=== PATIENT | female | born 1975 | race Caucasian/White ===

== ENCOUNTER 2024-02-17 20:01 | Inpatient (IN) ==
[2024-02-17 20:31] LABS: Basophils # (auto) 0.07 K/uL (0.00-0.20); Eosinophils # (auto) 0.15 K/uL (0.00-0.50); Eosinophils % (auto) 2.2 %; Hematocrit (blood only) 38.7 % (37.0-47.0); Hemoglobin 13.5 g/dl (12.0-16.0); Immature Granulocytes # (auto) 0.02 K/uL (0.01-0.20); Immature Granulocytes % (auto) 0.3 %; Lymphocytes # (auto) 2.15 K/uL (1.20-3.40); Lymphocytes % (auto) 31.4 %; Mean Corpuscular Hgb Conc 34.9 g/dL (32.0-36.0); Mean Platelet Volume 9.9 fL (9.4-12.4); Monocytes # (auto) 0.44 K/uL (0.11-0.59); Monocytes % (auto) 6.4 %; Neutrophils # (auto) 4.01 K/uL (1.40-6.50); Neutrophils % (auto) 58.7 %; Platelet Count 262 K/uL (130-400); RDW Coefficient of Variation 13.1 % (11.5-14.5); RDW Standard Deviation 41.2 fL (36.4-46.3); White Blood Count 6.84 K/ul (4.8-10.8)
[2024-02-17 20:55] LABS: Albumin Globulin Ratio 1.5 (0.9-2); Albumin Level 4.6 gm/dl (3.4-5.0); BUN Creatinine Ratio 18.6 (10-20); Bilirubin,Total 0.3 mg/dl (0.2-1.0); Calcium 9.3 mg/dl (8.6-10.3); Creatinine Clr Calc Pharmacy 69.5 ml/min; Magnesium 2.1 mg/dl (1.7-2.4); Potassium 3.6 mmol/L (3.5-5.1); Pregnancy Test, Serum Negative (Negative); Total Protein 7.6 gm/dl (6.0-8.3)
[2024-02-17 21:09] LABS: Thyroid Stimulating Hormone 0.975 uIu/ml (0.300-4.500)
[2024-02-17 21:26] LABS: Acetaminophen < 3 ug/ml (10-30); Salicylate < 3.0 mg/dl (3.0-30)
--- NOTE | 2024-02-17 21:55 | Emergency Department Note ---
Impression & Plan Alcohol use disorder, Alcohol withdrawal ED Provider Note CHIEF COMPLAINT: Detox request HISTORY OF PRESENTING ILLNESS: This 48-year-old female patient presents to the emergency department via EMS for evaluation of a detox request. The patient states that she had been trying to get into detox at [facility], but her blood alcohol level was .301 and an ambulance was called due to her history of seizures while detoxing. The patient states that she did drink 1/5 of Vodka today. She states that she normally drinks 1/5 of Vodka a day. The patient states that she has a history of seizures while detoxing. She last drink 3 hours prior to arrival. She states that she feels shaky and her heart is racing like she typically gets with detoxing. She has been to rehab 4 times previously per patient. She states that her last rehab stay was about 20 days ago. She is from [place] and had an Uber take her to [facility] for detox. She denies any drug use. She denies any symptoms other than her withdrawal symptoms. REVIEW OF SYSTEMS: See HPI for pertinent positives and pertinent negatives. ALLERGIES: PCN - hives MEDICATIONS: Modafinil, Lexapro, Trazodone PAST MEDICAL HISTORY: Relapsing remitting MS, Anxiety, Alcohol use disorder PHYSICAL EXAM: VITALS: Vitals are noted on the nurse's note and reviewed by myself. GENERAL: The patient is visibly intoxicated, but non toxic, no acute distress, non-diaphoretic. SKIN: Capillary refill <2 sec. EYES: PERRLA. EOMI. Conjunctivae without injection, sclerae without icterus. NOSE: Patent without discharge. MOUTH: Mucous membranes moist. Uvula midline. Airway patent. NECK: Supple without nuchal rigidity. HEART: Regular rate and rhythm without murmurs gallops or rubs. LUNGS: Clear to auscultation bilaterally without wheezes, rales or rhonchi. No retractions or accessory muscle use. ABDOMEN: Positive bowel sounds x 4. Normal tympanic percussion. Soft, nontender. No masses or organomegaly. Dennis sign negative. No guarding or rebound tenderness. No focal RLQ or LLQ tenderness. NEURO: The patient is visibly intoxicated. Patient was alert and oriented, but the patient has repetitive questioning and repetitive speech due to her alcohol intoxication. DIFFERENTIAL DIAGNOSIS: Differential diagnosis includes alcohol intoxication, drug intoxication, toxicologic, infection, hypoglycemia, electrolyte abnormalities, cardiac sources, intracerebral event, neurologic, trauma, psychosis, as well as other pathologies. ED COURSE AND MEDICAL DECISION MAKING: MEDICATIONS GIVEN: Ativan 1 mg IV. Banana bag. MONITOR: Continuous lpn care manager: Order was placed for continuous lpn care manager. Patient was placed on the lpn care manager and continuous pulse ox. Patient was noted to be in normal sinus rhythm at an initial rate of 90 bpm per my interpretation. EKG: EKG was interpreted by myself as normal sinus rhythm at 87 bpm with no acute ST or T wave changes. INTERPRETATION OF LABS: I interpreted the labs with full lab results as below in the lab section of this note. Pertinent lab results discussed in the MDM section below. CONSULTATIONS: On-call hospitalist MDM SUMMARY: I examined the patient. The patient is apparently from [place] and took an Uber to [facility] rehab facility due to her alcohol use disorder. However, when the patient arrived, her alcohol level was apparently 0.301. She has a history of seizures from withdrawal and she was sent to the emergency department via ambulance. The patient states that she has been to rehab for previous times and typically drinks 1/5 of vodka a day. She admits to drinking 1/5 of vodka today prior to attempting to go to rehab. The patient states that she is starting to experience mild withdrawal symptoms at this time, but denies any other symptoms or concerns. An IV lock was placed and labs were drawn. The patient was given Ativan 1 mg IV and a banana bag. White blood cell count was normal at 6.84. Hemoglobin normal at 13.5. Platelet count normal at 262. Glucose 110, but CMP otherwise without significant abnormalities. Magnesium normal. TSH normal. Serum hCG negative. Salicylate and acetaminophen levels were negative. Medical alcohol level elevated at 382.6. COVID screen negative. The patient did not give a urine sample while in the emergency department. The patient is requesting rehab placement/detox for her alcohol use disorder. The patient states that she has a history of seizures with withdrawal. The patient will be admitted for medical management until she is stable to be discharged to a rehab facility. I spoke with the on-call hospitalist who agreed to admit the patient for further management. Please refer to their dictation for further details. The patient's care was transferred in stable condition. DIAGNOSIS: Alcohol use disorder Alcohol withdrawal Past Med/Surg History Problem List (Updated 02/19/24 @ 19:40 by Yoselin Luong PA-C) Alcohol use disorder (Acute) Alcohol withdrawal (Acute) Social History Smoking Status: Never smoker Hx Alcohol Use: Yes Alcohol type: hard liquor Hx Substance Use: No Preferred Language: Faroese Communication Ability: Effective Rf Microwave Engineer Required: No Beliefs That Will Affect Care: None Current Living Situation: Alone Feels Safe at Home: Yes Safety Concerns: Feels Safe At This Time Assistive Devices: None Allergies Allergies Allergy/AdvReac Type Severity Reaction Status Date / Time Penicillins Allergy Hives Verified 02/17/24 22:06 Home Meds Home Medications Medication Instructions Recorded Confirmed escitalopram oxalate 10 mg tablet 10 mg PO HS 02/17/24 02/17/24 modafinil 100 mg tablet 100 mg PO QAM 02/17/24 02/17/24 trazodone 50 mg tablet 25 mg PO HS 02/17/24 02/17/24 Results & Data (ED) Vital Signs Vital Signs - 24 hr 02/17/24 20:09 02/17/24 20:13 02/17/24 20:19 Temperature 36.7 C Temperature Source Oral Pulse Rate 90 88 Pulse Rate [Radial] Pulse Rhythm [Radial] Pulse Strength [Radial] Respiratory Rate 16 Respiratory Effort / Characteristics Respiratory Depth Respiratory Pattern Blood Pressure 127/73 Blood Pressure [Left Arm] Blood Pressure Mean 91 Blood Pressure Mean [Left Arm] Blood Pressure Position [Left Arm] Pulse Oximetry 95 96 Oxygen Delivery Method Room Air Room Air Sepsis Recent Fever Within 48 Hours No Sepsis New/Unexplained Change in Mental Status N/A Sepsis Action Taken by Nursing No Action Required 02/17/24 22:32 02/17/24 23:33 Temperature Temperature Source Pulse Rate Pulse Rate [Radial] 78 79 Pulse Rhythm [Radial] Regular Pulse Strength [Radial] Normal Respiratory Rate 18 19 Respiratory Effort / Characteristics Non-Labored Spontaneous Respiratory Depth Normal Respiratory Pattern Regular Blood Pressure Blood Pressure [Left Arm] 118/78 112/68 Blood Pressure Mean Blood Pressure Mean [Left Arm] 91 82 Blood Pressure Position [Left Arm] Lying Pulse Oximetry 97 97 Oxygen Delivery Method Room Air Sepsis Recent Fever Within 48 Hours Sepsis New/Unexplained Change in Mental Status Sepsis Action Taken by Nursing Laboratory Data 02/19/24 05:24 10/22/24 05:24 Lab Results 02/17/24 02/17/24 Range/Units 20:13 20:17 WBC 6.84 (4.8-10.8) K/ul RBC 4.50 (4.20-5.40) M/uL Hgb 13.5 (12.0-16.0) g/dl Hct 38.7 (37.0-47.0) % MCV 86.0 (80.0-100.0) fL MCH 30.0 (25.0-34.0) pg MCHC 34.9 (32.0-36.0) g/dL RDW Std Deviation 41.2 (36.4-46.3) fL RDW Coeff of Irvin 13.1 (11.5-14.5) % Plt Count 262 (130-400) K/uL MPV 9.9 (9.4-12.4) fL Immature Gran % (Auto) 0.3 % Neut % (Auto) 58.7 % Lymph % (Auto) 31.4 % [place] % (Auto) 6.4 % Eos % (Auto) 2.2 % Baso % (Auto) 1.0 % Neut # (Auto) 4.01 (1.40-6.50) K/uL Lymph # (Auto) 2.15 (1.20-3.40) K/uL [place] # (Auto) 0.44 (0.11-0.59) K/uL Eos # (Auto) 0.15 (0.00-0.50) K/uL Baso # (Auto) 0.07 (0.00-0.20) K/uL Immature Gran # (Auto) 0.02 (0.01-0.20) K/uL Sodium 143 (136-145) mmol/L Potassium 3.6 (3.5-5.1) mmol/L Chloride 103 (98-107) mmol/L Carbon Dioxide 33 H (21-32) mmol/L Anion Gap 7 (3-11) BUN 16 (6-23) mg/dl Creatinine 0.86 (0.6-1.2) mg/dl Est Cr Clr Drug Dosing 69.5 ml/min eGFR 82.76 BUN/Creatinine Ratio 18.6 (10-20) Glucose 110 H (70-99(Fasting)) mg/dl Estimat Average Glucose 105 mg/dl Hemoglobin A1c 5.3 (4.5-5.6) % Calcium 9.3 (8.6-10.3) mg/dl Magnesium 2.1 (1.7-2.4) mg/dl Total Bilirubin 0.3 (0.2-1.0) mg/dl AST 18 (13-39) U/L ALT 6 L (7-52) U/L Alkaline Phosphatase 77 (34-104) U/L Total Protein 7.6 (6.0-8.3) gm/dl Albumin 4.6 (3.4-5.0) gm/dl Globulin 3.0 (2.5-4.0) gm/dl Albumin/Globulin Ratio 1.5 (0.9-2) TSH 0.975 (0.300-4.500) uIu/ml HCG, Qual Negative (Negative) Salicylates < 3.0 L (3.0-30) mg/dl Acetaminophen < 3 L (10-30) ug/ml Ethyl Alcohol mg/dL 382.6 H (<10.0) mg/dl SARS-CoV-2, RNA, NAAT NEGATIVE (NEGATIVE) Administered Medications Chlordiazepoxide HCl (Chlordiazepoxide Hcl 25 Mg Cap) 50 mg PO Q8H MARCELLE Stop: 02/20/24 06:01 Last Admin: 02/19/24 13:18 Dose: 50 mg Documented By: ELIUD Escitalopram Oxalate (Escitalopram Oxalate 10 Mg Tab) 10 mg PO HS MARCELLE Stop: 03/19/24 20:59 Last Admin: 02/18/24 20:12 Dose: 10 mg Documented By: MAO Lorazepam (Lorazepam 2 Mg/1 Ml Vial) 1 mg IV UD PRN; Protocol PRN Reason: EtOH Withdrawal AWSS Score 6,7 Stop: 03/19/24 00:08 Last Admin: 02/19/24 01:36 Dose: 1 mg Documented By: Admin: 02/18/24 06:44 Dose: 1 mg Documented By: ALICIA Lorazepam (Lorazepam 2 Mg/1 Ml Vial) 2 mg IV UD PRN; Protocol PRN Reason: EtOH Withdrawal AWSS Score 8,9 Stop: 03/19/24 00:08 Last Admin: 02/19/24 18:47 Dose: 2 mg Documented By: Admin: 02/19/24 15:39 Dose: 2 mg Documented By: Admin: 02/19/24 12:55 Dose: 2 mg Documented By: Admin: 02/19/24 08:13 Dose: 2 mg Documented By: Admin: 02/18/24 20:07 Dose: 2 mg Documented By: Admin: 02/18/24 11:59 Dose: 2 mg Documented By: MALKA Lorazepam (Lorazepam 2 Mg/1 Ml Vial) 0.5 mg IV Q4H PRN PRN Reason: Anxiety/Agitation Stop: 03/19/24 07:50 Last Admin: 02/19/24 17:17 Dose: 0.5 mg Documented By: Admin: 02/18/24 17:27 Dose: 0.5 mg Documented By: MALKA Melatonin (Melatonin 3 Mg Tab) 9 mg PO HS PRN PRN Reason: Sleep Stop: 03/19/24 21:54 Last Admin: 02/18/24 22:24 Dose: 9 mg Documented By: MAO Modafinil (Modafinil 100 Mg Tab) 100 mg PO [facility] Stop: 03/19/24 08:59 Last Admin: 02/19/24 08:13 Dose: 100 mg Documented By: Admin: 02/18/24 09:46 Dose: 100 mg Documented By: MALKA Trazodone HCl (Trazodone Hcl 50 Mg Tab) 25 mg PO HS [facility] Stop: 03/19/24 20:59 Last Admin: 02/18/24 22:24 Dose: 25 mg Documented By: MAO Discontinued Medications Chlordiazepoxide HCl (Chlordiazepoxide Hcl 25 Mg Cap) 50 mg PO Q6@0600,0800,1400,2000 [facility] Stop: 02/19/24 06:01 Last Admin: 02/19/24 05:37 Dose: 50 mg Documented By: Admin: 02/18/24 20:12 Dose: 50 mg Documented By: Admin: 02/18/24 14:24 Dose: 50 mg Documented By: Admin: 02/18/24 08:39 Dose: 50 mg Documented By: MALKA Escitalopram Oxalate (Escitalopram Oxalate 10 Mg Tab) 10 mg PO ONE STA Stop: 02/18/24 00:05 Last Admin: 02/18/24 00:37 Dose: 10 mg Documented By: ARMEN Gabapentin (Gabapentin 600 Mg Tab) 1,200 mg PO NOW STA Stop: 02/18/24 00:12 Last Admin: 02/18/24 00:38 Dose: 1,200 mg Documented By: ARMEN Gabapentin (Gabapentin 600 Mg Tab) 600 mg PO Q6H MARCELLE Stop: 02/18/24 12:16 Last Admin: 02/18/24 06:36 Dose: 600 mg Documented By: ALICIA Multivitamins 10 ml/ Thiamine HCl 100 mg/ Folic Acid 1 mg/Sodium Chloride 1,011.2 mls @ 500 mls/hr IV .Q2H2M ONE Stop: 02/18/24 00:07 Last Infusion: 02/18/24 01:07 Dose: Infused Documented By: Admin: 02/17/24 23:03 Dose: 500 mls/hr Documented By: ZACHARY Thiamine HCl 100 mg/ Syringe 10 mls @ 2 mls/min IV QA MARCELLE Stop: 03/19/24 08:59 Last Admin: 02/19/24 08:09 Dose: 2 mls/min Documented By: Admin: 02/18/24 09:46 Dose: 2 mls/min Documented By: MALKA Folic Acid 1 mg/ Syringe 10 mls @ 5 mls/min [facility] [place] Stop: 03/19/24 08:59 Last Admin: 02/19/24 08:10 Dose: 5 mls/min Documented By: Admin: 02/18/24 09:46 Dose: 5 mls/min Documented By: MALKA Potassium Chloride/Sodium Chloride (Normal Saline W/20 Meq Kcl) 20 meq in 1,000 mls @ 80 mls/hr IV .[id number] MARCELLE Stop: 02/18/24 20:44 Last Admin: 02/18/24 14:13 Dose: Not Given Documented By: MALKA Lorazepam (Lorazepam 2 Mg/1 Ml Vial) 1 mg IV NOW STA Stop: 02/17/24 22:07 Last Admin: 02/17/24 22:16 Dose: 1 mg Documented By: ZACK Potassium Chloride (Potassium Chloride Crtab 20 Meq Tabcr) 40 meq PO NOW STA Stop: 02/19/24 07:37 Last Admin: 02/19/24 08:08 Dose: 40 meq Documented By: ELIUD Trazodone HCl (Trazodone Hcl 50 Mg Tab) 25 mg PO ONE STA Stop: 02/18/24 00:05 Last Admin: 02/18/24 00:37 Dose: 25 mg Documented By: STEFANIEW Discharge Plan Visit Data Chief Complaint: Detox Request Stated Complaint: DETOX REQUEST ED Provider: Kareem Lang ED Midlevel Provider: Yoselin Luong Discharge Problem: Alcohol use disorder, Alcohol withdrawal Patient Disposition: Admitted As Inpatient Condition: Good Discharge Instructions Interventions: ED Discharge Assessment Last Done: 02/18/24 08:00 Discharge Problem: Alcohol withdrawal Qualifiers: Complication of substance-induced condition: with unspecified complication Q ualified Code(s): F10.939 - Alcohol use, unspecified with withdrawal, unspecified
[2024-02-17] MEDS: LORazepam 2 MG/1 ML VIAL IV STA (22:16)
[2024-02-17] MEDS: MULTI-VITAMIN INFUSION 10 ML, THIAMINE HCL 100 MG, FOLIC ACID 1 MG in SODIUM CHLORIDE 0... IV ONE (23:03)
--- NOTE | 2024-02-17 23:49 | History & Physical Report ---
Date of Service February 17, 2024 Assessment & Plan (1) Alcohol withdrawal: Plan: History of alcohol withdrawal seizures multiple sclerosis, in remission, patient follows with [facility] neurologist anxiety disorder, at baseline Hyperglycemia ro DM Admit to medical telemetry APOORVA S, DT precautions Check hemoglobin A1c DVT prophylaxis. SCDs Full code Text document was generated using [employer] voice recognition software. It may contain grammatical or spelling errors. Kindly contact undersigned for clarification of any documentation item in question. History of Present Illness Chief Complaint: [facility] sent me here Primary Care Provider: LISBETH Looney History obtained from patient and records. Medical history significant for multiple sclerosis, anxiety disorder, alcohol abuse, history alcohol withdrawal seizures. Patient is a resident of [facility] who traveled to [facility] seeking voluntary admission at [facility] for detox. Last confinement [facility] September 2023 for alcohol withdrawal seizures. Recent [facility] ER visit 4 days ago for ground-level fall/head trauma at [place] detox facility. Patient discharged back to detox facility. Patient had Uber emergency vehicle driver take her to [facility] today seeking con finement for voluntary detox. Patient noted tremors en route to facility. Elevated alcohol level at facility. Patient directed to ER for admission given history of alcohol withdrawal seizures. Patient denies headache, chest pain, SOB, abdominal pain. Patient denies suicidality. 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 Allergies Allergy/AdvReac Type Severity Reaction Status Date / Time Penicillins Allergy Hives Verified 02/17/24 22:06 Home Medications Medication Instructions Recorded Confirmed Type escitalopram oxalate 10 mg tablet 10 mg PO HS 02/17/24 02/17/24 History modafinil 100 mg tablet 100 mg PO QAM 02/17/24 02/17/24 History trazodone 50 mg tablet 25 mg PO HS 02/17/24 02/17/24 History Past Med/Surg History Problem List (Updated 02/18/24 @ 03:42 by Mando Grayson MD) Alcohol withdrawal Social History Smoking Status: Never smoker Hx Alcohol Use: Yes Alcohol type: hard liquor Hx Substance Use: No Preferred Language: Spanish Communication Ability: Effective Frame Assembler Required: No Beliefs That Will Affect Care: None Current Living Situation: Alone Feels Safe at Home: Yes Safety Concerns: Feels Safe At This Time Assistive Devices: None Review of Systems Review of Systems: As per HPI, all other systems reviewed and negative Physical Exam Physical Exam: GENERAL: pleasant, somewhat restless, alcoholic fetor, no respiratory distress SKIN: Normal color, warm HEENT: Kyle palpebral conjunctivae, no ptosis, dry buccal mucosa NECK : Supple, no tenderness CHEST : CTA, no tenderness HEART : RRR, no obvious murmurs ABDOMEN: no distention, nontender EXTREMITIES : No LE swelling/tenderness, no other conspicuous deformities noted NEUROLOGIC : Coherent, no facial asymmetry, no other gross focality Results & Data Results & Data Vital Signs (Past 12 Hours) Vital Signs Temp Pulse Pulse Resp BP BP Pulse Ox 02/17/24 23:33 79 19 112/68 97 02/17/24 22:32 78 18 118/78 97 02/17/24 20:19 88 02/17/24 20:13 96 02/17/24 20:09 36.7 C 90 16 127/73 95 O2 Del Method 02/17/24 23:33 Room Air 02/17/24 22:32 02/17/24 20:19 02/17/24 20:13 Room Air 02/17/24 20:09 Room Air Laboratory Results Laboratory Results WBC 6.84 K/ul (4.8-10.8) 02/17/24 20:13 RBC 4.50 M/uL (4.20-5.40) 02/17/24 20:13 Hgb 13.5 g/dl (12.0-16.0) 02/17/24 20:13 Hct 38.7 % (37.0-47.0) 02/17/24 20:13 MCV 86.0 fL (80.0-100.0) 02/17/24 20:13 MCH 30.0 pg (25.0-34.0) 02/17/24 20:13 MCHC 34.9 g/dL (32.0-36.0) 02/17/24 20:13 RDW Std Deviation 41.2 fL (36.4-46.3) 02/17/24 20:13 RDW Coeff of Irvin 13.1 % (11.5-14.5) 02/17/24 20:13 Plt Count 262 K/uL (130-400) 02/17/24 20:13 MPV 9.9 fL (9.4-12.4) 02/17/24 20:13 Immature Gran % (Auto) 0.3 % 02/17/24 20:13 Neut % (Auto) 58.7 % 02/17/24 20:13 Lymph % (Auto) 31.4 % 02/17/24 20:13 [place] % (Auto) 6.4 % 02/17/24 20:13 Eos % (Auto) 2.2 % 02/17/24 20:13 Baso % (Auto) 1.0 % 02/17/24 20:13 Neut # (Auto) 4.01 K/uL (1.40-6.50) 02/17/24 20:13 Lymph # (Auto) 2.15 K/uL (1.20-3.40) 02/17/24 20:13 [place] # (Auto) 0.44 K/uL (0.11-0.59) 02/17/24 20:13 Eos # (Auto) 0.15 K/uL (0.00-0.50) 02/17/24 20:13 Baso # (Auto) 0.07 K/uL (0.00-0.20) 02/17/24 20:13 Immature Gran # (Auto) 0.02 K/uL (0.01-0.20) 02/17/24 20:13 Sodium 143 mmol/L (136-145) 02/17/24 20:13 Potassium 3.6 mmol/L (3.5-5.1) 02/17/24 20:13 Chloride 103 mmol/L (98-107) 02/17/24 20:13 Carbon Dioxide 33 mmol/L (21-32) H 02/17/24 20:13 Anion Gap 7 (3-11) 02/17/24 20:13 BUN 16 mg/dl (6-23) 02/17/24 20:13 Creatinine 0.86 mg/dl (0.6-1.2) 02/17/24 20:13 Est Cr Clr Drug Dosing 69.5 ml/min 02/17/24 20:13 eGFR 82.76 02/17/24 20:13 BUN/Creatinine Ratio 18.6 (10-20) 02/17/24 20:13 Glucose 110 mg/dl (70-99(Fasting)) H 02/17/24 20:13 Calcium 9.3 mg/dl (8.6-10.3) 02/17/24 20:13 Magnesium 2.1 mg/dl (1.7-2.4) 02/17/24 20:13 Total Bilirubin 0.3 mg/dl (0.2-1.0) 02/17/24 20:13 AST 18 U/L (13-39) 02/17/24 20:13 ALT 6 U/L (7-52) L 02/17/24 20:13 Alkaline Phosphatase 77 U/L (34-104) 02/17/24 20:13 Total Protein 7.6 gm/dl (6.0-8.3) 02/17/24 20:13 Albumin 4.6 gm/dl (3.4-5.0) 02/17/24 20:13 Globulin 3.0 gm/dl (2.5-4.0) 02/17/24 20:13 Albumin/Globulin Ratio 1.5 (0.9-2) 02/17/24 20:13 TSH 0.975 uIu/ml (0.300-4.500) 02/17/24 20:13 HCG, Qual Negative (Negative) 02/17/24 20:13 Salicylates < 3.0 mg/dl (3.0-30) L 02/17/24 20:13 Acetaminophen < 3 ug/ml (10-30) L 02/17/24 20:13 Ethyl Alcohol mg/dL 382.6 mg/dl (<10.0) H 02/17/24 20:13 SARS-CoV-2, RNA, NAAT NEGATIVE (NEGATIVE) 02/17/24 20:17 Diagnostic Findings EKG as per my interpretation : Rate 85, NSR, RAD, nonspecific T wave abnormalities
[2024-02-18] MEDS ORDERED: LORazepam 2 MG/1 ML VIAL IV PRN ×2 (00:09→03:42)
[2024-02-18] MEDS ORDERED: Ativan IV Alcohol Withdrawal--Active Protocol IV PRN (00:09)
[2024-02-18] MEDS ORDERED: GABAPENTIN 1200MG ALCOHOL WITHDRAWAL LOAD PO STA (00:09)
[2024-02-18] MEDS ORDERED: PROMETHAZINE 6.25 MG/50.25 ML BAG IV PRN (00:10)
[2024-02-18] MEDS ORDERED: oxyCODONE HCL IR 5 MG TAB (IMMEDIATE RELEASE) PO PRN (00:10)
[2024-02-18] MEDS: traZODone HCL 50 MG TAB PO STA (00:37)
[2024-02-18] MEDS: ESCITALOPRAM OXALATE 10 MG TAB PO STA (00:37)
[2024-02-18] MEDS: GABAPENTIN 600 MG TAB PO STA (00:38)
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
--- OUTSIDE RECORDS SUMMARY | 2024-02-18 01:12 | External Medical Summary | Summary of Care ---
Author Name Unknown Organization [facility] Address [address] [place] [address] Phone [phone] Care Team Providers Care Ancient Art Curator Name Role Phone Cayey, Sirenasuzanna BOB Primary Care Provider Reason for Visit * Reason Onset Date Comments Referral 11/13/2023 Epic 178 Encounter Details Date Type Department Care Team ([facility] st Contact Info) Description 11/13/2023 Telephone BEHAVIORAL HEALTH BOXER OPERATOR [address] [place] [address] [facility] Referral (Epic 178) Allergies Active Allergy Reactions Criticality Noted Date [...] No 08/18/2023 Does the household have a [facility] source of income? (Household - for ages [...] encounter Miscellaneous Notes * Telephone Encounter - Susan Lewis OSA - 11/13/2023 11:27 AM EDT Referring provider: Sirena Buck CRNP Reason for referral: dx: alcohol abuse. Member with relapse and multiple Ed visits. States she wants to go to IP but continues to leave ED AMA before services can be coordinated. Member has an appt with PCP on 11/19/23 to discuss. Outcome: Sent provider a non-eligible message. Attempted to contact member. Call was not answered. LVM asking for a return call. If call is not returned will follow up on 11/16/23. Member can be directed to [employer] at [phone] Sunday through Sunday from 8am-5pm. documented in this encounter Plan of Treatment Upcoming Encounters Date Type Department Care Team (Late st Contact Info) Description 11/19/2023 10:00 AM EDT Office Visit [address] [address] Sirena Vick CRNP [address] [place] [address] 11/19/2023 12:00 PM EDT Appointment Radiology [facility], [facility] [address] [place] [address] [place] [address] 12/07/2023 8:00 AM EDT Office Visit [address] [address] Sirena Vick CRNP [address] [place] [address] Health Maintenance Due Date Last Done Comments [...] 05/27/2019, 08/06/2018, 08/06/2018 COVID-19 Vaccine (4 - 2022-2 4 season) 2022 03/25/2021, 08/19/2020, [...] Advance Directives occurred with: Patient Care Teams Ancient Art Curator Relationship Specialty Start Date End Date Sirena Vick CRNP [address] [place] [address] PCP - General Nurse Practitioner 11/10/23 documented as of this encounter
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
--- OUTSIDE RECORDS SUMMARY | 2024-02-18 01:12 | External Medical Summary ---
Author Name Unknown Address Unknown Organization [facility] [address] David [place] [address] Laboratory Report Ordering Provider Test Date Status BIANCA Jennings 02/13/2024 14:50:51 Final Observation Date Value Abnormality Reference (Units ) Status WBC, Total 02/13/2024 14:50:51 5.81 4.00-10.80 (K/uL) Final RBC 02/13/2024 14:50:51 4.51 3.85-5.15 (M/uL) Final Hemoglobin 02/13/2024 14:50:51 13.3 12.0-15.3 (g/dL) Final HCT 02/13/2024 14:50:51 40.0 36.0-45.2 (%) Final MCV 02/13/2024 14:50:51 88.7 81.5-97.5 (fL) Final MCH 02/13/2024 14:50:51 29.5 27.0-34.0 (pg) Final MCHC 02/13/2024 14:50:51 33.3 32.0-36.0 (g/dL) Final RDW 02/13/2024 14:50:51 12.7 11.5-15.5 (%) Final Platelets 02/13/2024 14:50:51 228 140-400 (K/uL) Final MPV 02/13/2024 14:50:51 10.4 6.6-11.1 (fL) Final Nucleated erythrocytes/100 leukocytes [Ratio] in Blood by Automated count 02/13/2024 14:50:51 0 <=0 (/100 WBCs) Final Performing Location LABORATORY [address] David [place] [address]
--- OUTSIDE RECORDS SUMMARY | 2024-02-18 01:12 | External Medical Summary ---
Author Name Unknown Address Unknown Organization [facility] [address] David [place] [address] Laboratory Report Ordering Provider Test Date Status BIANCA Jennings 02/13/2024 14:50:51 Final Observation Date Value Abnormality Reference (Units ) Status SYNC LEUKOCYTES IN BLOOD BY AUTOMATED COUNT 02/13/2024 14:50:51 5.81 4.00-10.80 (K/uL) Final Segs 02/13/2024 14:50:51 62.5 40.0-75.0 (%) Final Lymphs % 02/13/2024 14:50:51 22.5 18.0-42.0 (%) Final Monos 02/13/2024 14:50:51 11.0 1.0-11.0 (%) Final Eosinophils 02/13/2024 14:50:51 3.1 0.0-6.0 (%) Final Basos 02/13/2024 14:50:51 0.7 0.0-2.0 (%) Final Immature Granulocyte, Percent 02/13/2024 14:50:51 0.2 0.0-2.0 (%) Final Absolute Segs 02/13/2024 14:50:51 3.63 1.80-7.70 (K/uL) Final Lymphs, absolute 02/13/2024 14:50:51 1.31 1.00-4.80 (K/ul) Final Monos, Abs 02/13/2024 14:50:51 0.64 0.00-1.10 (K/uL) Final Eos, Abs 02/13/2024 14:50:51 0.18 0.00-0.70 (K/uL) Final Basos, Abs 02/13/2024 14:50:51 0.04 0.00-0.20 (K/uL) Final Immature Granulocytes, Number 02/13/2024 14:50:51 0.01 0.00-0.20 (K/uL) Final Performing Location [facility] - [address] [facility] [address] David [place] [address]
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
--- OUTSIDE RECORDS SUMMARY | 2024-02-18 01:12 | External Medical Summary | Summary of Care ---
Author Name Unknown Organization [facility] Address [address] [place] [address] Phone [phone] Care Team Providers Care Explosives Detonator Name Role Phone Sirena Vick Primary Care Provider Encounter Details Date Type Department Care Team (Late st Contact Info) Description 11/19/2023 6:00 PM EDT [facility] [address] [place] [address] [facility], Nurse Safe [address] [place] [address] Allergies Active Allergy Reactions Criticality Noted Date [...] as of this encounter Miscellaneous Notes * SAFE - Devon Palencia RN - 11/20/2023 2:33 PM EDT ANONYMOUS KIT COMPLETED [id number] Paper chart completed - uploaded via [employer]. documented in this encounter Plan of Treatment Upcoming Encounters Date Type Department Care Team (Late st Contact Info) Description 12/07/2023 8:00 AM EDT Office Visit [facility] [address] [place] [address] Sirena Vick CRNP [address] [place] [address] Health Maintenance Due Date Last Done Comments [...] 08/06/2018, 08/06/2018 COVID-19 Vaccine (2022-2 4 season) 2022 03/25/2021, 08/19/2020, 07/22/2020 Influenza [...] Advance Directives occurred with: Patient Care Teams Explosives Detonator Relationship Specialty Start Date End Date Sirena Vick CRNP [address] [place] [address] PCP - General Nurse Practitioner 11/10/23 documented as of this encounter
--- OUTSIDE RECORDS SUMMARY | 2024-02-18 01:12 | External Medical Summary ---
Author Name Unknown Address Unknown Organization [facility] - [address] [place] [address] Dr. David [place] [id number] Laboratory Report Ordering Provider Test Date Status HUMBERTO OJEDA 02/13/2024 14:50:51 Final Observation Date Value Abnormality Reference (Units ) Status Ethanol 02/13/2024 14:50:51 Negative Negative Final Performing Location [facility] - [address] [place] [address] Dr. David [place] [id number]
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
--- OUTSIDE RECORDS SUMMARY | 2024-02-18 01:12 | External Medical Summary | Summary of Care ---
Author Name Unknown Organization [facility] Address [address] [place] [address] Phone [phone] Care Team Providers Care Screwmaker Automatic Name Role Phone Sirena Vick Primary Care Provider Reason for Visit * Reason Comments Fall (+) headstrike (+) L OC (-) thinners GCS 15 from [facility] for ETOH x2 days * Auth/Cert Specialty Diagnoses / Procedures Referred By Fiordaliza carty Referred To Contact [facility] [address] [place] [address] Phone: [phone] [facility] [address] [facility] [place] [address] Referral ID Status Reason Start Date Expiration Date Visits Re quested Visits Authorized [id number] Encounter Details Date Type Department Care Team (Late st Contact Info) Description 02/13/2024 2:26 PM EDT - 02/13/2024 11:16 PM EDT Emergency [facility] Emergency Department ([facility]) [address] [facility] [place] [id number] Monika Luong MD [address] [facility] [place] [id number] Ground-level fall (Primary Dx); Syncope; Closed head injury, initial encounter; Facial laceration, initial encounter; Arm laceration, left, initial encounter; Alcohol withdrawal syndrome without complication (HCC); Dehydration; Screening for cardiovascular condition Discharge Disposition: Other Allergies Active Allergy Reactions Criticality Noted Date [...] pure alcohol) Sunday last drink - in [facility] PHQ-2 Answer Date Recorded PHQ Adult Total [...] Sign Reading Time Taken Comments Blood Pressure 112/74 02/13/2024 10:57 PM EDT Pulse 61 02/13/2024 10:57 PM EDT Temperature - - Respiratory Rate 16 02/13/2024 10:57 PM EDT Oxygen Saturation 97% 02/13/2024 10:57 PM EDT Inhaled Oxygen Concentration - - Weight 56.7 kg (125 lb) 02/13/2024 2:22 PM EDT Height 165.1 cm (5' 5") 02/13/2024 2:22 PM EDT Body Mass Index 20.8 02/13/2024 2:22 PM EDT documented in this encounter Functional Status Functional [...] No 10/09/2023 documented as of this encounter Discharge Instructions * Discharge Instructions* Monika Luong MD - 02/13/2024 8:37 PM EDT You have a laceration to your left forearm. You need to return to the emergency department in the next 10 days for wound check and suture removal. Please plan to watch for any signs of redness, warmth, discharge. Please antibiotic ointment over the wound. Please keep it clean and dry. Please returnwith any worsening pain, fever or any other concerns or concerning symptoms. It was a pleasure taking care of you today documented in this encounter Procedure Notes * Jose F Shannon MD - 02/13/2024 3:48 PM EDTAssociated Order(s): EKG REASON FOR STUDY: Syncope CONCLUSIONS: Normal sinus rhythm Within normal limits When compared with ECG of 09-Oct-2023 03:03, No significant change was found Ventricular Rate: 63 Atrial Rate: 63 NJ Interval: 174 QRS Duration: 74 QT/QTc: 414/423 ms P-R-T Pierre Part: 58 : -9 : 33 degrees documented in this encounter ED Notes * Monika Luong MD - 02/13/2024 3:48 PM EDTAssociated Order(s): Laceration Repair HISTORY OF PRESENT ILLNESS Deepika Fletcher is a 48 year old female who presents to the ED for evaluation of Fall ((+) headstrike (+) LOC (-) thinners GCS 15 from [facility] for ETOH x2 days). The patient was seen at 02/13/24 1426. Patient is a 48-year-old female with a history of alcohol abuse and DTs presenting to the emergency department from [facility] with suspicion self-harm from the care facility. Patient had also been sent for recent fall. Unknown if this may have been a seizure related fall. Patient reports that she has been taking Ativan. She reports she does not eat or drink very much when she takes this medication because it takes away her appetite. She denies any suicidality. She deniesany plan to harm herself and states that she did not harm herself. [facility] She denies any pain anywhere except for in her posterior neck and head. She does also have a cut on her wrist on the left side. History provided by: patient and EMS Trauma Evaluation: Mechanism of injury: fall Trauma Mechanism of injury: Fall The patient's allergies, past history, and medications were reviewed. PHYSICAL EXAM Initial Vitals (see all): BP 105/50 | Pulse 81 | Resp 20 | O2 98 %, Room Air, None | Weight 56.7 kg | Height 165.1 cm | BMI 20.8 kg/m2 Initial Pain Assessment (see all): 5 (moderate pain)/10, location: headache ([facility] Adult Scale 0-10) Physical Exam Vitals and nursing note reviewed. Constitutional: Appearance: Normal appearance. HENT: Head: Normocephalic. Comments: Laceration over the left eyebrow, no crepitus Nose: Nose normal. Mouth/Throat: Mouth: Mucous membranes are dry. Eyes: Extraocular Movements: Extraocular movements intact. Conjunctiva/sclera: Conjunctivae normal. Pupils: Pupils are equal, round, and reactive to light. Cardiovascular: Rate and Rhythm: Normal rate and regular rhythm. Pulmonary: Effort: Pulmonary effort is normal. No respiratory distress. Breath sounds: Normal breath sounds. Musculoskeletal: General: Signs of injury present. Normal range of motion. Cervical back: Tenderness (Tenderness to palpation over the paraspinal musculature. No tenderness to palpation at the midline cervical spine. No step- offs or deformities.) present. Skin: General: Skin is dry. Comments: 4 cm linear laceration of the left wrist, multiple superficial linear scratch boateng over bilateral distal forearms. 1 cm laceration over the left eyebrow Neurological: General: No focal deficit present. Mental Status: She is alert and oriented to person, place, and time. Psychiatric: Comments: Patient denies any suicidality or suicide attempt. She denies any homicidality. She denies any hallucinations. PROCEDURES AND TREATMENTS ED Orders | ED Results Laceration Repair Date/Time: 02/13/2024 8:00 PM Performed by: Monika Luong MD Authorized by: Monika Luong MD Consent: Consent obtained: Verbal Consent given by: Patient Risks, benefits, and alternatives were discussed: yes Risks discussed: Infection, pain, nerve damage and retained foreign body Alternatives discussed: No treatment and observation [place] protocol: Procedure explained and questions answered to patient or proxy's satisfaction: yes Relevant documents present and verified: yes Test results available and properly labeled: no Imaging studies available: no Required blood products, implants, devices, and special equipment available: no Site/side marked: yes Patient identity confirmed: Verbally with patient and arm band Anesthesia: Anesthesia method: Local infiltration Local anesthetic: Lidocaine 1% WITH epi Laceration details: Location: Shoulder/arm Shoulder/arm location: L lower arm Length (cm): 4 Repair type: Repair type: Simple Pre-procedure details: Preparation: Patient was prepped and draped in usual sterile fashion Exploration: Wound exploration: wound explored through full range of motion and entire depth of wound probed andvisualized Wound extent: no fascia violation noted, no foreign bodies/material noted, no muscle damage noted, no nerve damage noted, no tendon damage noted, no underlying fracture noted and no vascular damage noted Contaminated: no Treatment: Area cleansed with: Saline Amount of cleaning: Standard Irrigation solution: Sterile saline Irrigation volume: 200ml Irrigation method: Pressure wash and syringe Visualized foreign bodies/material removed: no Skin repair: Repair method: Sutures Suture size: 3-0 Suture material: Prolene Suture technique: Simple interrupted Approximation: Approximation: Close Vermilion border: well-aligned Post-procedure details: Dressing: Antibiotic ointment and non-adherent dressing Patient tolerance of procedure: Tolerated well, no immediate complications MEDICAL DECISION MAKING Nursing notes and vital signs were reviewed. ED consults were placed. ED Course as of 02/14/24 0218 SunFeb 13, [address] Head/Brain without contrast IMPRESSION IMPRESSION 1. No acute intracranial abnormality is identified. 2. No acute cervical fracture is identified. 3. Additional findings as described above. [MH] 1702 Will clear C collar [MH] 1703 Troponin T, High Sensitivity: <6 reassuring [MH] 170 Comprehensive Metabolic Panel(!) CMP reassuring without concerning electrolyte abnormality, renal or liver dysfunction. [MH] 1703 CBC with WBC Differential CBC negative for leukocytosis, anemia, platelet abnormality. [] 170 ETHANOL,MEDICAL: Negative Patient is not intoxicated. [] 2033 Spoke to Crisis. They spoke to psychiatry. Patient is appropriate for discharge back to the facility [MH] ED Course User Index [] Monika Luong MD Differential Diagnoses Based on my history, physical exam, and evaluation, the differential includes, but is not limited, to the following diagnoses: Dehydration, orthostatic syncope, anemia, cardiac arrhythmia, acute electrolyte abnormality, laceration, simple laceration, neurovascular injury unlikely based on patient'sphysical exam, alcohol withdrawal, alcohol withdrawal seizure. On arrival to the ED the patient appears nontoxic. She is sitting in the ED gurney with a cervical collar in place. Patient does have laceration that is well approximated over the left eyebrow. She does have laceration on the left forearm. Patient reports falling over a dresser in her room and cutting herself on this. The location of the wounds do match the story. Patient is adamant that she was not trying to harm herself. She denies any suicidality. She reports that she is actively going to treatment on her own accord. She she has had alcohol withdrawal seizures in the past but does not feellike this was an alcohol withdrawal seizure as she did not have any preseizure symptoms. She deniesany alcohol use here. She denies any drug use. She reports she has been given ativan for her alcohol withdrawal which also makes her a little lightheaded. Patient had positive orthostatic vital signs. She was given IV fluid for this. Patient was placed on CIWA protocol. Labs were ordered by myself and interpreted by myself. CT imaging was ordered and interpreted by myself. I do not appreciate anysigns of ICH. No obvious subluxation of the cervical spine. During the evaluation the patient's facility called and reported that they found signs of possible self-harm in her room. Patient reports that they have been remodeling the bathroom and that she did have bleeding on the floor there after she scratched herself on the dresser. She is adamant that sheis not planning to harm herself and has not tried to harm herself today. Patient was medically cleared for crisis evaluation. Patient was evaluated by crisis and was deemed appropriate to be discharged back to her facility. Patient was discharged after tolerating oral intake and remains in hemodynamically stable condition Amount and/or Complexity of Data Reviewed Independent Historian: EMS Labs: ordered. Decision-making details documented in ED Course. Radiology: ordered and independent interpretation performed. Decision-making details documented in ED Course. ECG/medicine tests: ordered and independent interpretation performed. Details: On my independent review the patient's EKG: Rate 63 Normal axis Normal QRS interval Normal QTC interval Normal NJ interval Sinus rhythm Compared to prior from 10/09/2023: No dynamic changes No STEMI Risk OTC drugs. Prescription drug management. Diagnosis or treatment significantly limited by social determinants of health. Patient is an alcoholic which is a social determinant of health for the patient Clinical Impressions Ground-level fall Closed head injury, initial encounter Facial laceration, initial encounter Arm laceration, left, initial encounter Alcohol withdrawal syndrome without complication (HCC) Dehydration Disposition Discharged. The patient's condition at disposition was: stable. Monika Luong documented in this encounter Miscellaneous Notes * ED Commodity Lead Note - Stacy Alejandro RN - 02/13/2024 11:16 PM EDT STAFF FROM [facility] AT BEDSIDE TO TRANSPORT PT * ED Commodity Lead Note - Stacy Alejandro RN - 02/13/2024 3:45 PM EDT Pt presents to ED via EMS from [facility] for ETOH, day 2 of detox. Pt reports falls w/ unknown LOC - states requested to skip afternoon ativan dose due to "not feeling well" and fell into dresser in room. Pt has scratches to bilateral wrists/forearms stating that "I get itchy from the ativan" small lac to L eyebrow bleeding controlled. 2inch lac w subcutaneous tissue exposed on L wrist, bleeding controlled - pt states that this may have occurred from hitting endtable, denies SI/HI. Received call from Danielle @ [facility] stating that they found bloody "perforated steel hanger strap" plumbing wire in patients room and suspect self harm, requesting Crisis Eval, states that as long as she is "cleared by crisis" they can accept her back at [facility]. 1:1 sitter initiated, changed into hospital garb, c-collar remains intact. Belongings (pants, shirt, bra, socks, shoes, wedding rings remain on patient) 1700 pt self removed c-collar x2. Provider aware. documented in this encounter Plan of Treatment Scheduled Orders Name Type Priority Associated Diagnoses Orde r Schedule URINE SCREEN, POINT OF CARE (ENTER/EDIT) Point of Care Testing STAT Perform Now for 1 Occurrences starting 02/13/2024 until 02/13/2024 TOXICOLOGY, URINESCREEN W/ CONFIRMATION Lab STAT Perform Now for 1 Occurrences starting 02/13/2024 until 02/13/2024 EKG EKG STAT Screening for cardiovascular condition Perform Now for 1 Occurrences starting 02/13/2024 until 02/13/2024 Health Maintenance Due Date Last Done Comments [...] Procedure Name Priority Date/Time Associated Diagnosis Comments LACERATION REPAIR Routine 02/13/2024 8:0 0 PM EDT HC ECG TRACING ONLY STAT 02/13/2024 3 :[address] C SPINE WO CONTRAST STAT 3:[address] HEAD/BRAIN WO CONTRAST Routine 02/13/2024 3:37 PM EDT DIFFERENTIAL, AUTOMATED STAT 02/13/2024 2:50 PM EDT TROPONIN T, HIGH SENSITIVITY STAT 02/13/2024 2:50 PM EDT COMPREHENSIVE METABOLIC PANEL STAT 02/13/2024 2:50 PM EDT CBC STAT 02/13/2024 2:50 PM EDT ETHANOL, MEDICAL Add-on 02/13/2024 2:50 PM EDT CBC STAT 02/13/2024 2:50 PM EDT EXTRA RED TOP Routine 02/13/2024 2:45 PM EDT EXTRA LIGHT BLUE TOP Routine 02/13/2024 2:45 PM EDT EXTRA GOLD TOP Routine 02/13/2024 2:45 PM EDT EXTRA TUBES Routine 02/13/2024 2:45 PM EDT documented in this encounter Results * Laceration Repair (02/13/2024 8:00 PM EDT) Narrative Monika Luong MD - 02/13/2024 8:00 PM EDT Monika Luong MD 02/14/2024 2:18 AM Laceration Repair Date/Time: 02/13/2024 8:00 PM Performed by: Monika Luong MD Authorized by: Monika Luong MD Consent: Consent obtained: Verbal Consent given by: Patient Risks, benefits, and alternatives were discussed: yes Risks discussed: Infection, pain, nerve damage and retained foreign body Alternatives discussed: No treatment and observation [place] protocol: Procedure explained and questions answered to patient or proxy's satisfaction: yes Relevant documents present and verified: yes Test results available and properly labeled: no Imaging studies available: no Required blood products, implants, devices, and special equipment available: no Site/side marked: yes Patient identity confirmed: Verbally with patient and arm band Anesthesia: Anesthesia method: Local infiltration Local anesthetic: Lidocaine 1% WITH epi Laceration details: Location: Shoulder/arm Shoulder/arm location: L lower arm Length (cm): 4 Repair type: Repair type: Simple Pre-procedure details: Preparation: Patient was prepped and draped in usual sterile fashion Exploration: Wound exploration: wound explored through full range of motion and entire depth of wound probed and visualized Wound extent: no fascia violation noted, no foreign bodies/material noted, no muscle damage noted, no nerve damage noted, no tendon damage noted, no underlying fracture noted and no vascular damage noted Contaminated: no Treatment: Area cleansed with: Saline Amount of cleaning: Standard Irrigation solution: Sterile saline Irrigation volume: 200ml Irrigation method: Pressure wash and syringe Visualized foreign bodies/material removed: no Skin repair: Repair method: Sutures Suture size: 3-0 Suture material: Prolene Suture technique: Simple interrupted Approximation: Approximation: Close Vermilion border: well-aligned Post-procedure details: Dressing: Antibiotic ointment and non-adherent dressing Patient tolerance of procedure: Tolerated well, no immediate complications Monika Luong MD PROCEDURE REPORT * EKG (02/13/2024 3:48 PM EDT) 02/13/2024 3:48 PM EDT Narrative Procedure Note Jose F Shannon MD - 02/13/2024 3:48 PM EDT REASON FOR STUDY: Syncope CONCLUSIONS: Normal sinus rhythm Within normal limits When compared with ECG of 09-Oct-2023 03:03, No significant change was found Ventricular Rate: 63 Atrial Rate: 63 NJ Interval: 174 QRS Duration: 74 QT/QTc: 414/423 ms P-R-T Pierre Part: 58 : -9 : 33 degrees T Terrance Mandujano MD EKG [facility] * CT C SPINE WO CONTRAST (02/13/2024 3:37 PM EDT) Anatomical Region Laterality Modality Cspine, Spine, Neck, Vertebra Co mputed Tomography 02/13/2024 3:48 PM EDT Impressions 02/13/2024 3:45 PM EDT IMPRESSION 1. No acute intracranial abnormality is identified. 2. No acute cervical fracture is identified. 3. Additional findings as described above. Narrative 02/13/2024 3:[address] HEAD/BRAIN WO CONTRAST CT C SPINE WO CONTRAST 02/13/2024 3:37 pm HISTORY Fall, head strike. COMPARISON Comparison is made with the prior head CT 08/05/2023. TECHNIQUE 5-mm axial images are reconstructed from helical data obtained from the vertex the calvarium through the skull base without administration of IV contrast. Coronal and sagittal reformatted images were then performed. Routine protocol CT of the cervical spine was performed without the administration of IV contrast. Coronal sagittal reformatted images were then performed FINDINGS Head CT: The ventricles and sulci are within normal limits in size for patient age. There is scattered nonspecific subcortical foci of hypodensity, most commonly associated with mild chronic small vessel disease. There is no acute intracranial hemorrhage. The -white matter differentiation is grossly maintained. The basal cisterns are patent. There is no mass-effect or midline shift. There are mild intracranial vascular calcifications, suggestive of atherosclerotic disease. The orbits are unremarkable. The mastoid air cells are clear. The nasal septum is deviated to the right. There is a rightward septal spur. There is minimal mucosal thickening of the left sphenoid sinus Cervical spine: There is mild reversal of the normal cervical lordosis, which may be positional or related to muscle spasm. There is intervertebral disc space narrowing, endplate osteophyte formation, and mild endplate degenerative changes at C5-6. There is mild intervertebral disc space narrowing at C4-C5. The vertebral body heights are maintained. The prevertebral soft tissues are within normal limits. No acute cervical fracture is identified. No significant spinal canal stenosis is identified. No focal consolidation is identified within the lung apices. Procedure Note Leo Mayorga MD - 02/13/[address] HEAD/BRAIN WO CONTRAST CT C SPINE WO CONTRAST 02/13/2024 3:37 pm HISTORY Fall, head strike. COMPARISON Comparison is made with the prior head CT 08/05/2023. TECHNIQUE 5-mm axial images are reconstructed from helical data obtained from thevertex the calvarium through the skull base without administration of IVcontrast. Coronal and sagittal reformatted images were then performed.Routine protocol CT of the cervical spine was performed without theadministration of IV contrast. Coronal sagittal reformatted images werethen performed FINDINGS Head CT: The ventricles and sulci are within normal limits in size forpatient age. There is scattered nonspecific subcortical foci ofhypodensity, most commonly associated with mild chronic small vesseldisease. There is no acute intracranial hemorrhage. The -whitematter differentiation is grossly maintained. The basal cisterns arepatent. There is no mass-effect or midline shift. There are mildintracranial vascular calcifications, suggestive of atheroscleroticdisease. The orbits are unremarkable. The mastoid air cells are clear. The nasalseptum is deviated to the right. There is a rightward septal spur. Thereis minimal mucosal thickening of the left sphenoid sinus Cervical spine: There is mild reversal of the normal cervical lordosis,which may be positional or related to muscle spasm. There isintervertebral disc space narrowing, endplate osteophyte formation, andmild endplate degenerative changes at C5-6. There is mild intervertebraldisc space narrowing at C4-C5. The vertebral body heights are maintained.The prevertebral soft tissues are within normal limits. No acutecervical fracture is identified. No significant spinal canal stenosis isidentified. No focal consolidation is identified within the lungapices. IMPRESSION IMPRESSION 1. No acute intracranial abnormality is identified. 2. No acute cervical fracture is identified. 3. Additional findings as described above. Monika Luong MD RAD CT * CT HEAD/BRAIN WO CONTRAST (02/13/2024 3:37 PM EDT) Anatomical Region Laterality Modality Head Computed Tomogra phy 02/13/2024 3:48 PM EDT Impressions 02/13/2024 3:45 PM EDT IMPRESSION 1. No acute intracranial abnormality is identified. 2. No acute cervical fracture is identified. 3. Additional findings as described above. Narrative 02/13/2024 3:[address] HEAD/BRAIN WO CONTRAST CT C SPINE WO CONTRAST 02/13/2024 3:37 pm HISTORY Fall, head strike. COMPARISON Comparison is made with the prior head CT 08/05/2023. TECHNIQUE 5-mm axial images are reconstructed from helical data obtained from the vertex the calvarium through the skull base without administration of IV contrast. Coronal and sagittal reformatted images were then performed. Routine protocol CT of the cervical spine was performed without the administration of IV contrast. Coronal sagittal reformatted images were then performed FINDINGS Head CT: The ventricles and sulci are within normal limits in size for patient age. There is scattered nonspecific subcortical foci of hypodensity, most commonly associated with mild chronic small vessel disease. There is no acute intracranial hemorrhage. The -white matter differentiation is grossly maintained. The basal cisterns are patent. There is no mass-effect or midline shift. There are mild intracranial vascular calcifications, suggestive of atherosclerotic disease. The orbits are unremarkable. The mastoid air cells are clear. The nasal septum is deviated to the right. There is a rightward septal spur. There is minimal mucosal thickening of the left sphenoid sinus Cervical spine: There is mild reversal of the normal cervical lordosis, which may be positional or related to muscle spasm. There is intervertebral disc space narrowing, endplate osteophyte formation, and mild endplate degenerative changes at C5-6. There is mild intervertebral disc space narrowing at C4-C5. The vertebral body heights are maintained. The prevertebral soft tissues are within normal limits. No acute cervical fracture is identified. No significant spinal canal stenosis is identified. No focal consolidation is identified within the lung apices. Procedure Note Leo Mayorga MD - 02/13/[address] HEAD/BRAIN WO CONTRAST CT C SPINE WO CONTRAST 02/13/2024 3:37 pm HISTORY Fall, head strike. COMPARISON Comparison is made with the prior head CT 08/05/2023. TECHNIQUE 5-mm axial images are reconstructed from helical data obtained from thevertex the calvarium through the skull base without administration of IVcontrast. Coronal and sagittal reformatted images were then performed.Routine protocol CT of the cervical spine was performed without theadministration of IV contrast. Coronal sagittal reformatted images werethen performed FINDINGS Head CT: The ventricles and sulci are within normal limits in size forpatient age. There is scattered nonspecific subcortical foci ofhypodensity, most commonly associated with mild chronic small vesseldisease. There is no acute intracranial hemorrhage. The -whitematter differentiation is grossly maintained. The basal cisterns arepatent. There is no mass-effect or midline shift. There are mildintracranial vascular calcifications, suggestive of atheroscleroticdisease. The orbits are unremarkable. The mastoid air cells are clear. The nasalseptum is deviated to the right. There is a rightward septal spur. Thereis minimal mucosal thickening of the left sphenoid sinus Cervical spine: There is mild reversal of the normal cervical lordosis,which may be positional or related to muscle spasm. There isintervertebral disc space narrowing, endplate osteophyte formation, andmild endplate degenerative changes at C5-6. There is mild intervertebraldisc space narrowing at C4-C5. The vertebral body heights are maintained.The prevertebral soft tissues are within normal limits. No acutecervical fracture is identified. No significant spinal canal stenosis isidentified. No focal consolidation is identified within the lungapices. IMPRESSION IMPRESSION 1. No acute intracranial abnormality is identified. 2. No acute cervical fracture is identified. 3. Additional findings as described above. Monika Luong MD RAD CT * ETHANOL, MEDICAL (02/13/2024 2:50 PM EDT) ETHANOL, MEDICAL Negative Negative 02/13/2024 3:37 PM EDT [facility] Blood Venous blood specimen / Unknown Venipuncture / Unknown 02/13/2024 2:50 PM EDT 02/13/2024 3:00 PM EDT Monika Luong MD LAB BLOOD ORDERABLES [facility] [address] [place] [address] * DIFFERENTIAL, AUTOMATED (02/13/2024 2:50 PM EDT) WBC 5.81 4.00 - 10.80 K/uL 02/13/2024 3:08 PM EDT [facility] Neutrophils % 62.5 40.0 - 75.0 % 02/13/2024 3:08 PM EDT [facility] Lymphocytes % 22.5 18.0 - 42.0 % 02/13/2024 3:08 PM EDT [facility] Monocytes % 11.0 1.0 - 11.0 % 02/13/2024 3:08 PM EDT [facility] Eosinophils % 3.1 0.0 - 6.0 % 02/13/2024 3:08 PM EDT [facility] Basophils % 0.7 0.0 - 2.0 % 02/13/2024 3:08 PM EDT [facility] Immature Granulocytes % 0.2 0.0 - 2.0 % 02/13/2024 3:08 PM EDT [facility] Absolute Neutrophils 3.63 1.80 - 7.70 K/uL 02/13/2024 3:08 PM EDT [facility] Absolute Lymphocytes 1.31 1.00 - 4.80 K/ul 02/13/2024 3:08 PM EDT [facility] Absolute Monocytes 0.64 0.00 - 1.10 K/uL 02/13/2024 3:08 PM EDT [facility] Absolute Eosinophils 0.18 0.00 - 0.70 K/uL 02/13/2024 3:08 PM EDT [facility] Absolute Basophils 0.04 0.00 - 0.20 K/uL 02/13/2024 3:08 PM EDT [facility] Absolute Immature Granulocytes 0.01 0.00 - 0.20 K/uL 02/13/2024 3:08 PM EDT [facility] Blood Venous blood specimen / Unknown Venipuncture / Unknown 02/13/2024 2:50 PM EDT 02/13/2024 3:00 PM EDT T Terrance Mandujano MD LAB BLOOD ORDERA BLES [facility] [address] [facility] [place] [address] * CBC (02/13/2024 2:50 PM EDT) WBC 5.81 4.00 - 10.80 K/uL 02/13/2024 3:08 PM EDT [facility] RBC 4.51 3.85 - 5.15 M/uL 02/13/2024 3:08 PM EDT [facility] HGB 13.3 12.0 - 15.3 g/dL 02/13/2024 3:08 PM EDT [facility] HCT 40.0 36.0 - 45.2 % 02/13/2024 3:08 PM EDT [facility] MCV 88.7 81.5 - 97.5 fL 02/13/2024 3:08 PM EDT [facility] MCH 29.5 27.0 - 34.0 pg 02/13/2024 3:08 PM EDT [facility] MCHC 33.3 32.0 - 36.0 g/dL 02/13/2024 3:08 PM EDT [facility] RDW 12.7 11.5 - 15.5 % 02/13/2024 3:08 PM EDT [facility] PLT 228 140 - 400 K/uL 02/13/2024 3:08 PM EDT [facility] MPV 10.4 6.6 - 11.1 fL 02/13/2024 3:08 PM EDT [facility] nRBCs 0 <=0 /100 WBCs 02/13/2024 3:08 PM EDT [facility] Blood Venous blood specimen / Unknown Venipuncture / Unknown 02/13/2024 2:50 PM EDT 02/13/2024 3:00 PM EDT T Terrance Mandujano MD LAB BLOOD ORDERA BLES [facility] [address] [place] [address] * TROPONIN T, HIGH SENSITIVITY (02/13/2024 2:50 PM EDT) Troponin T, High Sensitivity <6 <=14 ng/L 02/13/2024 3:38 PM EDT [facility] Blood Venous blood specimen / Unknown Venipuncture / Unknown 02/13/2024 2:50 PM EDT 02/13/2024 3:00 PM EDT T Terrance Mandujano MD LAB BLOOD ORDERA BLES [facility] [address] [place] [address] * (ABNORMAL) COMPREHENSIVE METABOLIC PANEL (02/13/2024 2:50 PM EDT) BUN 12 6 - 20 mg/dL 02/13/2024 3:37 PM EDT [facility] CREATININE 0.8 0.5 - 1.0 mg/dL 02/13/2024 3:37 PM EDT [facility] EGFR >90 >=60 mL/min 02/13/2024 3:37 PM EDT [facility] Comment:eGFR is calculated b ased on the CKD-EPI 2020 equation. SODIUM 137 135 - 146 mmol/L 02/13/2024 3:37 PM EDT [facility] POTASSIUM 3.8 3.5 - 5.1 mmol/L 02/13/2024 3:37 PM EDT [facility] CHLORIDE 100 98 - 107 mmol/L 02/13/2024 3:37 PM EDT [facility] CO2 30 22 - 32 mmol/L 02/13/2024 3:37 PM EDT [facility] ANION GAP 7 7 - 15 mmol/L 02/13/2024 3:37 PM EDT [facility] GLUCOSE 114 70 - 120 mg/dL 02/13/2024 3:37 PM EDT [facility] Albumin 4.4 3.8 - 5.0 g/dL 02/13/2024 3:37 PM EDT [facility] AST 26 10 - 35 U/L 02/13/2024 3:37 PM EDT [facility] Alkaline Phosphatase 72 35 - 130 U/L 02/13/2024 3:37 PM EDT [facility] Bilirubin, Total 0.6 <=1.2 mg/dL 02/13/2024 3:37 PM EDT [facility] CALCIUM 9.5 8.4 - 10.2 mg/dL 02/13/2024 3:37 PM EDT [facility] Protein 7.1 6.0 - 8.3 g/dL 02/13/2024 3:37 PM EDT [facility] ALT <6(L) 10 - 35 U/L 02/13/2024 3:37 PM EDT [facility] Blood Venous blood specimen / Unknown Venipuncture / Unknown 02/13/2024 2:50 PM EDT 02/13/2024 3:00 PM EDT Michaela Mandujano MD LAB BLOOD ORDERA BLES Performing Organization Address City/[facility] Co de Phone Number LAB[facility] [address] [place] [address] * EXTRA RED TOP (02/13/2024 2:45 PM EDT) Blood Venous blood specimen / Unknown Venipuncture / Unknown 02/13/2024 2:45 PM EDT 02/13/2024 3:02 PM EDT Monika Luong MD LAB BLOOD ORDERABLES Performing Organization Address [facility] Co de Phone Number LAB[facility] [address] [place] [address] * EXTRA GOLD TOP (02/13/2024 2:45 PM EDT) Blood Venous blood specimen / Unknown Venipuncture / Unknown 02/13/2024 2:45 PM EDT 02/13/2024 3:02 PM EDT Monika Luong MD LAB BLOOD ORDERABLES Performing Organization Address City/[facility] Co de Phone Number LAB[facility] [address] [place] [address] * EXTRA LIGHT BLUE TOP (02/13/2024 2:45 PM EDT) Blood Venous blood specimen / Unknown Venipuncture / Unknown 02/13/2024 2:45 PM EDT 02/13/2024 3:02 PM EDT Monika Luong MD LAB BLOOD ORDERABLES Performing Organization Address [facility] Co de Phone Number LAB[facility]ATORY [facility] [address] [place] [address] documented in this encounter Visit Diagnoses Diagnosis Ground-level fall- Primary Syncope Syncope and collapse Closed head injury, initial encounter Facial laceration, initial encounter Arm laceration, left, initial encounter Alcohol withdrawal syndrome without complication (HCC) Dehydration Screening for cardiovascular condition Screening for other and unspecified cardiovascular conditions documented in this encounter Administered Medications Inactive Administered Medications - up to 3 most recent administrations Medication Order MAR Action Action Date Dose Rate Site LORazepam (Ativan) inj 1 mg 1 mg, IV Push, Q1H PRN Other, CIWA-Ar score 8-15, repeat CIWA-Ar in 60 minutes. Assess and record Level of consciousness and Respiratory Rate just prior to each dose of LORazepam and 15 minutes after each dose of LORazepam. Hold LORazepam for Respiratory Rate less than 12, somnolent/inability to arouse. Use if patient unable to take PO. Notify provider if 2 doses are given within 2 hours., Starting on Sun02/13/24 at 1446, Until Yoly 02/14/24 at 0318, For 6 days, MUST FURTHER DILUTE FOR IV PUSH WITH EQUAL VOLUME OF NSS LORazepam (Ativan) inj 2 mg 2 mg, IV Push, Q1H PRN Other, CIWA-Ar score 16-25, repeat CIWA-Ar in 60 minutes. Assess and record Level of consciousness and Respiratory Rate just prior to each dose of LORazepam and 15 minutes after each dose of LORazepam. Hold LORazepam for Respiratory Rate less than 12, somnolent/inability to arouse. Use if patient unable to take PO. Notify provider if 2 doses are given within 2 hours., Starting on Sun02/13/24 at 1446, Until Yoly 02/14/24 at 0318, For 6 days, MUST FURTHER DILUTE FOR IV PUSH WITH EQUAL VOLUME OF NSS LORazepam (Ativan) inj 4 mg 4 mg, IV Push, Q1H PRN Other, CIWA-Ar Score greater than 25, repeat CIWA-Ar in 60 minutes. Assess and record Level of consciousness and Respiratory Rate just prior to each dose of LORazepam and 15 minutes after each dose of LORazepam. Hold LORazepam for Respiratory Rate less than 12, somnolent/inability to arouse. Use if patient unable to take PO. Notify provider if 2 doses are given within 2 hours., Starting on Sun02/13/24 at 1446, Until Yoly 02/14/24 at 0318, For 6 days, MUST FURTHER DILUTE FOR IV PUSH WITH EQUAL VOLUME OF NSS LORazepam (Ativan) tab 1 mg 1 mg, Oral, Q1H PRN Other, CIWA-Ar score 8-15, repeat CIWA-Ar in 60 minutes. Assess and record Level of consciousness and Respiratory Rate just prior to each dose of LORazepam and 15 minutes after each dose of LORazepam. Hold LORazepam for Respiratory Rate less than 12, somnolent/inability to arouse. Use PO if patient able to tolerate. Notify provider if 2 doses are given within 2 hours., Starting on Sun02/13/24 at 1446, Until Yoly 02/14/24 at 0318, For 6 days Given 02/13/2024 3:52 PM EDT 1 mg LORAzepam (Ativan) tab 2 mg 2 mg, Oral, Q1H PRN Other, CIWA-Ar score 16-25, repeat CIWA-Ar in 60 minutes. Assess and record Level of consciousness and Respiratory Rate just prior to each dose of LORazepam and 15 minutes after each dose of LORazepam. Hold LORazepam for Respiratory Rate less than 12, somnolent/inability to arouse. Use PO if patient able to tolerate. Notify provider if 2 doses are given within 2 hours., Starting on Sun02/13/24 at 1446, Until Yoly 02/14/24 at 0318, For 6 days LORAzepam (Ativan) tab 4 mg 4 mg, Oral, Q1H PRN Other, CIWA-Ar Score greater than 25, repeat CIWA-Ar in 60 minutes. Assess and record Level of consciousness and Respiratory Rate just prior to each dose of LORazepam and 15 minutes after each dose of LORazepam. Hold LORazepam for Respiratory Rate less than 12, somnolent/inability to arouse. Use PO if patient able to tolerate. Notify provider if 2 doses are given within 2 hours., Starting on Sun02/13/24 at 1446, Until Yoly 02/14/24 at 0318, For 6 days Thiamine (Vitamin B-1) tab 100 mg 100 mg, Oral, Daily(AM), First dose on Sun02/13/24 at 1530, Until Discontinued Given 02/13/2024 3:52 PM EDT 100 mg documented in this encounter Active and Recently Administered Medications Times are shown in EDT. Scheduled Medication Order 02/11/2024 02/12/2024 02/13/2024 lidocaine-epinephrine 1 %-1:[id number] inj 50 mg 50 mg (5 mL), Subcutaneous, ONCE, On Sun02/13/24 at 1530, For 1 dose 1530 (Due) Thiamine (Vitamin B-1) tab 100 mg 100 mg, Oral, Daily(AM), First dose on Sun02/13/24 at 1530, Until Discontinued 1552 (Given - Provid er: Stacy Alejandro RN) PRN Medication Order 02/11/2024 02/12/2024 02/13/2024 LORazepam (Ativan) inj 1 mg(Linked Group 1) 1 mg, IV Push, Q1H PRN Other, CIWA-Ar score 8-15, repeat CIWA-Ar in 60 minutes. Assess and record Level of consciousness and Respiratory Rate just prior to each dose of LORazepam and 15 minutes after each dose of LORazepam. Hold LORazepam for Respiratory Rate less than 12, somnolent/inability to arouse. Use if patient unable to take PO. Notify provider if 2 doses are given within 2 hours., Starting on Sun02/13/24 at 1446, Until Yoly 02/14/24 at 0318, For 6 days, MUST FURTHER DILUTE FOR IV PUSH WITH EQUAL VOLUME OF NSS 1552 (See Alternativ e - Provider: Stacy Alejandro RN) LORazepam (Ativan) inj 2 mg(Linked Group 2) 2 mg, IV Push, Q1H PRN Other, CIWA-Ar score 16-25, repeat CIWA-Ar in 60 minutes. Assess and record Level of consciousness and Respiratory Rate just prior to each dose of LORazepam and 15 minutes after each dose of LORazepam. Hold LORazepam for Respiratory Rate less than 12, somnolent/inability to arouse. Use if patient unable to take PO. Notify provider if 2 doses are given within 2 hours., Starting on Sun02/13/24 at 1446, Until Yoly 02/14/24 at 0318, For 6 days, MUST FURTHER DILUTE FOR IV PUSH WITH EQUAL VOLUME OF NSS LORazepam (Ativan) inj 4 mg(Linked Group 3) 4 mg, IV Push, Q1H PRN Other, CIWA-Ar Score greater than 25, repeat CIWA-Ar in 60 minutes. Assess and record Level of consciousness and Respiratory Rate just prior to each dose of LORazepam and 15 minutes after each dose of LORazepam. Hold LORazepam for Respiratory Rate less than 12, somnolent/inability to arouse. Use if patient unable to take PO. Notify provider if 2 doses are given within 2 hours., Starting on Sun02/13/24 at 1446, Until Yoly 02/14/24 at 0318, For 6 days, MUST FURTHER DILUTE FOR IV PUSH WITH EQUAL VOLUME OF NSS LORazepam (Ativan) tab 1 mg(Linked Group 1) 1 mg, Oral, Q1H PRN Other, CIWA-Ar score 8-15, repeat CIWA-Ar in 60 minutes. Assess and record Level of consciousness and Respiratory Rate just prior to each dose of LORazepam and 15 minutes after each dose of LORazepam. Hold LORazepam for Respiratory Rate less than 12, somnolent/inability to arouse. Use PO if patient able to tolerate. Notify provider if 2 doses are given within 2 hours., Starting on Sun02/13/24 at 1446, Until Yoly 02/14/24 at 0318, For 6 days 1552 (Given - Provid er: Stacy Alejandro RN) LORAzepam (Ativan) tab 2 mg(Linked Group 2) 2 mg, Oral, Q1H PRN Other, CIWA-Ar score 16-25, repeat CIWA-Ar in 60 minutes. Assess and record Level of consciousness and Respiratory Rate just prior to each dose of LORazepam and 15 minutes after each dose of LORazepam. Hold LORazepam for Respiratory Rate less than 12, somnolent/inability to arouse. Use PO if patient able to tolerate. Notify provider if 2 doses are given within 2 hours., Starting on Sun02/13/24 at 1446, Until Yoly 02/14/24 at 0318, For 6 days LORAzepam (Ativan) tab 4 mg(Linked Group 3) 4 mg, Oral, Q1H PRN Other, CIWA-Ar Score greater than 25, repeat CIWA-Ar in 60 minutes. Assess and record Level of consciousness and Respiratory Rate just prior to each dose of LORazepam and 15 minutes after each dose of LORazepam. Hold LORazepam for Respiratory Rate less than 12, somnolent/inability to arouse. Use PO if patient able to tolerate. Notify provider if 2 doses are given within 2 hours., Starting on Sun02/13/24 at 1446, Until Yoly 02/14/24 at 0318, For 6 days Linked Groups Order Group 1: LORazepam (Ativan) tab 1 mgJump to med 1 mg, Oral, Q1H PRN Other, CIWA-Ar score 8-15, repeat CIWA-Ar in 60 minutes. Assess and record Level of consciousness and Respiratory Rate just prior to each dose of LORazepam and 15 minutes after each dose of LORazepam. Hold LORazepam for Respiratory Rate less than 12, somnolent/inability to arouse. Use PO if patient able to tolerate. Notify provider if 2 doses are given within 2 hours., Starting on Sun02/13/24 at 1446, Until Yoly 02/14/24 at 0318, For 6 days Or LORazepam (Ativan) inj 1 mgJump to med 1 mg, IV Push, Q1H PRN Other, CIWA-Ar score 8-15, repeat CIWA-Ar in 60 minutes. Assess and record Level of consciousness and Respiratory Rate just prior to each dose of LORazepam and 15 minutes after each dose of LORazepam. Hold LORazepam for Respiratory Rate less than 12, somnolent/inability to arouse. Use if patient unable to take PO. Notify provider if 2 doses are given within 2 hours., Starting on Sun02/13/24 at 1446, Until Yoly 02/14/24 at 0318, For 6 days, MUST FURTHER DILUTE FOR IV PUSH WITH EQUAL VOLUME OF NSS Group 2: LORAzepam (Ativan) tab 2 mgJump to med 2 mg, Oral, Q1H PRN Other, CIWA-Ar score 16-25, repeat CIWA-Ar in 60 minutes. Assess and record Level of consciousness and Respiratory Rate just prior to each dose of LORazepam and 15 minutes after each dose of LORazepam. Hold LORazepam for Respiratory Rate less than 12, somnolent/inability to arouse. Use PO if patient able to tolerate. Notify provider if 2 doses are given within 2 hours., Starting on Sun02/13/24 at 1446, Until Yoly 02/14/24 at 0318, For 6 days Or LORazepam (Ativan) inj 2 mgJump to med 2 mg, IV Push, Q1H PRN Other, CIWA-Ar score 16-25, repeat CIWA-Ar in 60 minutes. Assess and record Level of consciousness and Respiratory Rate just prior to each dose of LORazepam and 15 minutes after each dose of LORazepam. Hold LORazepam for Respiratory Rate less than 12, somnolent/inability to arouse. Use if patient unable to take PO. Notify provider if 2 doses are given within 2 hours., Starting on Sun02/13/24 at 1446, Until Yoly 02/14/24 at 0318, For 6 days, MUST FURTHER DILUTE FOR IV PUSH WITH EQUAL VOLUME OF NSS Group 3: LORAzepam (Ativan) tab 4 mgJump to med 4 mg, Oral, Q1H PRN Other, CIWA-Ar Score greater than 25, repeat CIWA-Ar in 60 minutes. Assess and record Level of consciousness and Respiratory Rate just prior to each dose of LORazepam and 15 minutes after each dose of LORazepam. Hold LORazepam for Respiratory Rate less than 12, somnolent/inability to arouse. Use PO if patient able to tolerate. Notify provider if 2 doses are given within 2 hours., Starting on Sun02/13/24 at 1446, Until Yoly 02/14/24 at 0318, For 6 days Or LORazepam (Ativan) inj 4 mgJump to med 4 mg, IV Push, Q1H PRN Other, CIWA-Ar Score greater than 25, repeat CIWA-Ar in 60 minutes. Assess and record Level of consciousness and Respiratory Rate just prior to each dose of LORazepam and 15 minutes after each dose of LORazepam. Hold LORazepam for Respiratory Rate less than 12, somnolent/inability to arouse. Use if patient unable to take PO. Notify provider if 2 doses are given within 2 hours., Starting on Sun02/13/24 at 1446, Until Yoly 02/14/24 at 0318, For 6 days, MUST FURTHER DILUTE FOR IV PUSH WITH EQUAL VOLUME OF NSS documented in this encounter Advance Directives * [...] Advance Directives occurred with: Patient Care Teams Screwmaker Automatic Relationship Specialty Start Date End Date Sirena iVck CRNP [address] [place] [id number] PCP - General Nurse Practitioner 11/10/23 documented as of this encounter
--- OUTSIDE RECORDS SUMMARY | 2024-02-18 01:12 | External Medical Summary ---
Author Name Unknown Address Unknown Organization [facility] [address] [place] [address] Laboratory Report Ordering Provider Test Date Status TMAYRAELLO 02/13/2024 14:50:51 Final Observation Date Value Abnormality Reference (Units ) Status Troponin T 02/13/2024 14:50:51 <6 <=14 (ng/ L) Final Performing Location LABORATORY [address] [place] [address]
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
--- OUTSIDE RECORDS SUMMARY | 2024-02-18 01:12 | External Medical Summary | Summary of Care ---
Author Name Unknown Organization [facility] Address [address] [place] [address] Phone [phone] Care Team Providers Care Tool Polishing Machine Operator Name Role Phone Swain, Sirenasuzanna BOB Primary Care Provider Reason for Visit * Reason Onset Date Comments Referral 11/13/2023 Epic 178 Encounter Details Date Type Department Care Team ([facility] st Contact Info) Description 11/13/2023 Telephone BEHAVIORAL HEALTH RESEARCH PHARMACIST [address] [place] [address] [facility] Referral (Epic 178) Allergies Active Allergy Reactions [...] on 11/16/23. Member can be directed to [employer] at [phone] Sunday through Sunday from 8am-5pm. documented in this encounter Plan of Treatment Upcoming Encounters Date Type Department Care Team (Late st Contact Info) Description 11/19/2023 10:00 AM EDT Office Visit [address] [address] Sirena Vick CRNP [address] [place] [id number] 11/19/2023 12:00 PM EDT Appointment Radiology [facility], Hugo Reid [address] [place] [address] ROSIBEL Sanches [address] 12/07/2023 8:00 AM EDT Office Visit [address] [address] Sirena Vick CRNP [address] [place] [address] Health Maintenance Due Date Last Done Comments [...] Advance Directives occurred with: Patient Care Teams Tool Polishing Machine Operator Relationship Specialty Start Date End Date Sirena Vcik CRNP [address] [place] [address] PCP - General Nurse Practitioner 11/10/23 documented as of this encounter
--- OUTSIDE RECORDS SUMMARY | 2024-02-18 01:12 | External Medical Summary ---
Author Name Unknown Address Unknown Organization [facility] - [address] [place] [address] Laboratory Report Ordering Provider Test Date Status BIANCA Jennings 02/13/2024 14:50:51 Final Observation Date Value Abnormality Reference (Units ) Status BUN 02/13/2024 14:50:51 12 6-20 (mg/dL) Final Creatinine 02/13/2024 14:50:51 0.8 0.5-1.0 (mg/dL) Final Glomerular filtration rate/1.73 sq M.predicted [Volume Rate/Area] in Serum, Plasma or Blood by Creatinine-based formula (CKD-EPI) 02/13/2024 14:50:51 >90 >=60 (mL/min) Final eGFR is calculated based on the CKD-EPI 2020 equation. Sodium 02/13/2024 14:50:51 137 135-146 (m mol/L) Final Potassium 02/13/2024 14:50:51 3.8 3.5-5.1 (m mol/L) Final Cl 02/13/2024 14:50:51 100 98-107 (mm ol/L) Final CO2 02/13/2024 14:50:51 30 22-32 (mmo l/L) Final Anion gap 02/13/2024 14:50:51 7 7-15 (mmol /L) Final Glucose 02/13/2024 14:50:51 114 70-120 (mg /dL) Final Albumin 02/13/2024 14:50:51 4.4 3.8-5.0 (g /dL) Final AST (Aspartate aminotransferase) 02/13/2024 14:50:51 26 10-35 (U/L) Fin al Alk Phos 02/13/2024 14:50:51 72 35-130 (U/ L) Final Bilirubin, Total 02/13/2024 14:50:51 0.6 <=1 .2 (mg/dL) Final Calcium 02/13/2024 14:50:51 9.5 8.4-10.2 ( mg/dL) Final Protein 02/13/2024 14:50:51 7.1 6.0-8.3 (g /dL) Final ALT (Alanine aminotransferase) 02/13/2024 14:50:51 <6 Below low normal 10-35 (U/L) Final Performing Location LABORATORY [address] [place] [address]
--- OUTSIDE RECORDS SUMMARY | 2024-02-18 01:13 | External Medical Summary ---
Author Name Unknown Address Unknown Organization [facility] [address] [place] [address] Laboratory Report Ordering Provider Test Date Status MICHELA SERRANO 11/11/2023 14:00:00 Final Observation Date Value Abnormality Reference (Units ) Status SYNC LEUKOCYTES IN BLOOD BY AUTOMATED COUNT 11/11/2023 14:00:00 8.04 4.00-10.80 (K/uL) Final Segs 11/11/2023 14:00:00 73.7 40.0-75.0 (%) Final Lymphs % 11/11/2023 14:00:00 18.7 18.0-42.0 (%) Final Monos 11/11/2023 14:00:00 6.7 1.0-11.0 (%) Final Eosinophils 11/11/2023 14:00:00 0.1 0.0-6.0 (%) Final Basos 11/11/2023 14:00:00 0.6 0.0-2.0 (%) Final Immature Granulocyte, Percent 11/11/2023 14:00:00 0.2 0.0-2.0 (%) Final Absolute Segs 11/11/2023 14:00:00 5.92 1.80-7.70 (K/uL) Final Lymphs, absolute 11/11/2023 14:00:00 1.50 1.00-4.80 (K/ul) Final Monos, Abs 11/11/2023 14:00:00 0.54 0.00-1.10 (K/uL) Final Eos, Abs 11/11/2023 14:00:00 0.01 0.00-0.70 (K/uL) Final Basos, Abs 11/11/2023 14:00:00 0.05 0.00-0.20 (K/uL) Final Immature Granulocytes, Number 11/11/2023 14:00:00 0.02 0.00-0.20 (K/uL) Final Performing Location [facility] - [address] [facility] [address] [place] [address]
--- OUTSIDE RECORDS SUMMARY | 2024-02-18 01:13 | External Medical Summary ---
Author Name Unknown Address Unknown Organization [facility] [address] [place] [address] Laboratory Report Ordering Provider Test Date Status PATTIE VELIZJ 10/09/2023 02:26:00 Final Less than 0.5 ng/mL: Low ris k for progression to sepsis. Review patients condition for localized infections.

0.5 to 2.0 ng/mL: Intermediate risk for progresion to sepsis. Review underlying conditions. Recommend repeat PCT after 6 hours has elapsed.

Greater than 2.0 ng/mL: high risk for progression to sepsis unless other causes are known. Observation Date Value Abnormality Reference (Units ) Status Procalcitonin [Mass/volume] in Serum or Plasma by Immunoassay 10/09/2023 02:26:00 <0.06 <0.10 (ng/mL) Final Performing Location LABORATORY [address] [place] [address]
--- OUTSIDE RECORDS SUMMARY | 2024-02-18 01:13 | External Medical Summary ---
Author Name Unknown Address Unknown Organization [facility] [address] [place] [address] Laboratory Report Ordering Provider Test Date Status MICHELA SERRANO 11/11/2023 14:00:00 Final Observation Date Value Abnormality Reference (Units ) Status Troponin T 11/11/2023 14:00:00 <6 <=14 (ng/ L) Final Performing Location LABORATORY [address] [place] [address]
--- OUTSIDE RECORDS SUMMARY | 2024-02-18 01:13 | External Medical Summary ---
Author Name Unknown Address Unknown Organization [facility] [address] [place] [address] Laboratory Report Ordering Provider Test Date Status MICHELA SERRANO 11/11/2023 14:00:00 Final Observation Date Value Abnormality Reference (Units ) Status Acetaminophen 11/11/2023 14:00:00 <5.0 Below low normal 10.0-30.0 (ug/mL) Final Performing Location LABORATORY [address] [place] [address]
--- OUTSIDE RECORDS SUMMARY | 2024-02-18 01:13 | External Medical Summary ---
Author Name Unknown Address Unknown Organization [facility] [address] [place] [address] Laboratory Report Ordering Provider Test Date Status SAHBANA ROSARIO 10/09/2023 02:26:00 Final Observation Date Value Abnormality Reference (Units ) Status WBC, Total 10/09/2023 02:26:00 11.25 Above high normal 4.00-10.80 (K/uL) Final RBC 10/09/2023 02:26:00 4.44 3.85-5.15 (M/uL) Final Hemoglobin 10/09/2023 02:26:00 13.4 12.0-15.3 (g/dL) Final HCT 10/09/2023 02:26:00 39.3 36.0-45.2 (%) Final MCV 10/09/2023 02:26:00 88.5 81.5-97.5 (fL) Final MCH 10/09/2023 02:26:00 30.2 27.0-34.0 (pg) Final MCHC 10/09/2023 02:26:00 34.1 32.0-36.0 (g/dL) Final RDW 10/09/2023 02:26:00 13.3 11.5-15.5 (%) Final Platelets 10/09/2023 02:26:00 325 140-400 (K/uL) Final MPV 10/09/2023 02:26:00 9.8 6.6-11.1 (fL) Final Nucleated erythrocytes/100 leukocytes [Ratio] in Blood by Automated count 10/09/2023 02:26:00 0 <=0 (/100 WBCs) Final Performing Location LABORATORY [address] [place] [address]
--- OUTSIDE RECORDS SUMMARY | 2024-02-18 01:13 | External Medical Summary ---
Author Name Unknown Address Unknown Organization [facility] - [address] [place] [address] Dr. [place] [address] Laboratory Report Ordering Provider Test Date Status MICHELA SERRANO 11/11/2023 14:00:00 Final Observation Date Value Abnormality Reference (Units ) Status Salicylates 11/11/2023 14:00:00 <1.0 Below low normal 5 .0-30.0 (mg/dL) Final Performing Location LABORATORY [address] [place] [address]
--- OUTSIDE RECORDS SUMMARY | 2024-02-18 01:13 | External Medical Summary ---
Author Name Unknown Address Unknown Organization [facility] - [address] [place] [address] Laboratory Report Ordering Provider Test Date Status MARLENESHABANA 10/09/2023 02:26:00 Final Observation Date Value Abnormality Reference (Units ) Status BUN 10/09/2023 02:26:00 8 6-20 (mg/dL) Final Creatinine 10/09/2023 02:26:00 0.7 0.5-1.0 (mg/dL) Final Glomerular filtration rate/1.73 sq M.predicted [Volume Rate/Area] in Serum, Plasma or Blood by Creatinine-based formula (CKD-EPI) 10/09/2023 02:26:00 >90 >=60 (mL/min) Final eGFR is calculated based on the CKD-EPI 2020 equation Sodium 10/09/2023 02:26:00 138 135-146 (m mol/L) Final Potassium 10/09/2023 02:26:00 3.9 3.5-5.1 (m mol/L) Final Cl 10/09/2023 02:26:00 97 Below low normal 98- 107 (mmol/L) Final CO2 10/09/2023 02:26:00 22 22-32 (mmo l/L) Final Anion gap 10/09/2023 02:26:00 19 Above high normal 7- 15 (mmol/L) Final Glucose 10/09/2023 02:26:00 144 Above high normal 70 -120 (mg/dL) Final Albumin 10/09/2023 02:26:00 4.5 3.8-5.0 (g /dL) Final AST (Aspartate aminotransferase) 10/09/2023 02:26:00 34 10-35 (U/L) Fin al Alk Phos 10/09/2023 02:26:00 95 35-130 (U/ L) Final Bilirubin, Total 10/09/2023 02:26:00 0.3 <=1 .2 (mg/dL) Final Calcium 10/09/2023 02:26:00 8.8 8.4-10.2 ( mg/dL) Final Protein 10/09/2023 02:26:00 7.4 6.0-8.3 (g /dL) Final ALT (Alanine aminotransferase) 10/09/2023 02:26:00 10 10-35 (U/L) Aren tyler Performing Location LABORATORY [address] [place] [address]
--- OUTSIDE RECORDS SUMMARY | 2024-02-18 01:13 | External Medical Summary ---
Author Name Unknown Address Unknown Organization [facility] - [address] [place] [address] Laboratory Report Ordering Provider Test Date Status TANISHA ALEXIS 11/11/2023 14:00:00 Final Observation Date Value Abnormality Reference (Units ) Status Magnesium 11/11/2023 14:00:00 2.2 1.5-2.6 (m g/dL) Final Performing Location [facility] - [address] [place] [address] Dr. [place] [address]
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
--- OUTSIDE RECORDS SUMMARY | 2024-02-18 01:13 | External Medical Summary | Summary of Care ---
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 For 1 dose Given 11/11/2023 2:25 PM EDT 4 mg documented in this encounter Active and Recently Administered Medications Times are shown in EDT. Scheduled Medication Order 11/09/2023 11/10/2023 11/11/2023 diazePAM (Valium) inj 5 mg (COMPLETED) 5 mg, IV Push, ONCE, On 11/11/23 at 1445, For 1 dose 1423 (Given - Provid er: Gisel Phelan RN) NSS 0.9% 1,000 mL bolus infusion (COMPLETED) Intravenous, at 1,000 mL/hr Administer over 60 Minutes, Wide open, This infusion may be completed in less than 1 hour, since it will be a wide open rate, ONCE, 1 dose, On 11/11/23 at 1330 1403 (New Bag - Prov ider: Gisel Phelan RN) ondansetron (Zofran) inj 4 mg (COMPLETED) 4 mg, IV Push, ONCE, On 11/11/23 at 1445, For 1 dose 1425 (Given - Provid er: Gisel Phelan RN) documented in this encounter Advance Directives [...] Advance Directives occurred with: Patient Care Teams Retirement Administrator Relationship Specialty Start Date End Date Sirena Vick CRNP [address] [place] [id number] PCP - General Nurse Practitioner 11/10/23 documented as of this encounter
--- OUTSIDE RECORDS SUMMARY | 2024-02-18 01:13 | External Medical Summary ---
Author Name Unknown Address Unknown Organization : Laboratory Report Ordering Provider Test Date Status NO,UNKNOWN 11/11/2023 12:47:35 Final Observation Date Value Abnormality Reference (Units ) Status Glucose Point of Care 11/11/2023 12:47:35 118 70-120 (mg/dL) Final Performing Location
--- OUTSIDE RECORDS SUMMARY | 2024-02-18 01:13 | External Medical Summary ---
Author Name Unknown Address Unknown Organization K2I:LABORATORY [facility] - [address] [place] [address] Dr. David GLEASON [address] Laboratory Report Ordering Provider Test Date Status SHABANA ROSARIO 10/09/2023 02:26:00 Final Observation Date Value Abnormality Reference (Units ) Status Ethanol 10/09/2023 02:26:00 165 Above high normal Ne gative (mg/dL) Final Performing Location LABORATORY [facility] - [address] [place] [address] Dr. David GLEASON [address]
--- OUTSIDE RECORDS SUMMARY | 2024-02-18 01:13 | External Medical Summary ---
Author Name Unknown Address Unknown Organization K2I:LABORATORY [facility] - [address] David [place]ON [address] Laboratory Report Ordering Provider Test Date Status NESS VELIZ 10/10/2023 06:27:00 Final Observation Date Value Abnormality Reference (Units ) Status Magnesium 10/10/2023 06:27:00 2.3 1.5-2.6 (m g/dL) Final Performing Location LABORATORY [facility] - [address] [place] [address] Dr. David GLEASON [address]
--- OUTSIDE RECORDS SUMMARY | 2024-02-18 01:13 | External Medical Summary ---
Author Name Unknown Address Unknown Organization K0E:LABORATORY [facility] - [address] [place] [id number] Laboratory Report Ordering Provider Test Date Status ALONSOERIKA 11/13/2023 02:34:19 Final Observation Date Value Abnormality Reference (Units ) Status Ethanol 11/13/2023 02:34:19 273 Above high normal Ne gative (mg/dL) Final Performing Location LABORATORY [facility] - [address] [place] [id number]
--- OUTSIDE RECORDS SUMMARY | 2024-02-18 01:13 | External Medical Summary ---
Author Name Unknown Address Unknown Organization K0E:LABORATORY [facility] - [address] [facility] [address] Laboratory Report Ordering Provider Test Date Status ERIKA GUPTA 11/12/2023 22:53:01 Final Observation Date Value Abnormality Reference (Units ) Status BUN 11/12/2023 22:53:01 8 6-20 (mg/dL) Final Creatinine 11/12/2023 22:53:01 0.7 0.5-1.0 (mg/dL) Final Glomerular filtration rate/1.73 sq M.predicted [Volume Rate/Area] in Serum, Plasma or Blood by Creatinine-based formula (CKD-EPI) 11/12/2023 22:53:01 >90 >=60 (mL/min) Final eGFR is calculated based on the CKD-EPI 2020 equation Sodium 11/12/2023 22:53:01 143 135-146 (m mol/L) Final Potassium 11/12/2023 22:53:01 3.5 3.5-5.1 (m mol/L) Final Cl 11/12/2023 22:53:01 101 98-107 (mm ol/L) Final CO2 11/12/2023 22:53:01 25 22-32 (mmo l/L) Final Anion gap 11/12/2023 22:53:01 17 Above high normal 7- 15 (mmol/L) Final Glucose 11/12/2023 22:53:01 98 70-120 (mg /dL) Final Albumin 11/12/2023 22:53:01 4.3 3.8-5.0 (g /dL) Final AST (Aspartate aminotransferase) 11/12/2023 22:53:01 42 Above high normal 10-35 (U/L) Final Alk Phos 11/12/2023 22:53:01 94 35-130 (U/ L) Final Bilirubin, Total 11/12/2023 22:53:01 0.3 <=1 .2 (mg/dL) Final Calcium 11/12/2023 22:53:01 9.0 8.4-10.2 ( mg/dL) Final Protein 11/12/2023 22:53:01 7.3 6.0-8.3 (g /dL) Final ALT (Alanine aminotransferase) 11/12/2023 22:53:01 12 10-35 (U/L) Aren tyler Performing Location LABORATORY [address] [address]
--- OUTSIDE RECORDS SUMMARY | 2024-02-18 01:13 | External Medical Summary ---
Author Name Unknown Address Unknown Organization K2I:LABORATORY [facility] - [address] David G[place]AS[place] [address] Laboratory Report Ordering Provider Test Date Status MICHELA SERRANO 11/11/2023 14:07:57 Final RAPID SURVEILLANCE Observation Date Value Abnormality Reference (Units ) Status SARS Coronavirus 2 11/11/2023 14:07:57 Negative N egative Final No SARS-CoV2 Coronavirus RNA detected by PCR (amplified probe).
This express test was developed and its performance characteristics determined by [facility]. It has not been cleared or approved [...] (RT-PCR) test, or a Centers for Disease Control-acceptable equivalent. The test is performed in a high complexity Clinical Laboratory Improvement Amendments-(CLIA) certified laboratory. The test is acceptable for SARS-CoV-2 diagnosis, surveillance, and travel within the [place] and to most countries. Please check with local testing authorities about requirements before travel.

The validation of bronchial specimens, tracheal aspirates, and sputum for this assay was developed and performance characteristics determined by [facility]. The validation of alternate specimen types has not been cleared or approved by the U.S. Food and Drug Administration (FDA). It has been determined that such clearance is not necessary. Influenza virus A RNA [Prese nce] in Specimen by JACOB with probe detection 11/11/2023 14:07:57 Negative Negative Final No Influenza A RNA detected by PCR (amplified probe) Influenza virus B RNA [Prese nce] in Specimen by JACOB with probe detection 11/11/2023 14:07:57 Negative Negative Final No Influenza B RNA detected by PCR (amplified probe) Respiratory syncytial virus RNA [Identifier] in Specimen by JACOB with probe detection 11/11/2023 14:07:57 Negative Negative Final No Respiratory Syncytial Vir us RNA detected by PCR (amplified probe) Performing Location LABORATORY [address] [place] [address]
--- OUTSIDE RECORDS SUMMARY | 2024-02-18 01:13 | External Medical Summary ---
Author Name Unknown Address Unknown Organization K2I:LABORATORY [address] David GLEASON [address] Laboratory Report Ordering Provider Test Date Status MICHELA SERRANO 11/11/2023 14:00:00 Final Observation Date Value Abnormality Reference (Units ) Status WBC, Total 11/11/2023 14:00:00 8.04 4.00-10.80 (K/uL) Final RBC 11/11/2023 14:00:00 4.56 3.85-5.15 (M/uL) Final Hemoglobin 11/11/2023 14:00:00 13.3 12.0-15.3 (g/dL) Final HCT 11/11/2023 14:00:00 40.3 36.0-45.2 (%) Final MCV 11/11/2023 14:00:00 88.4 81.5-97.5 (fL) Final MCH 11/11/2023 14:00:00 29.2 27.0-34.0 (pg) Final MCHC 11/11/2023 14:00:00 33.0 32.0-36.0 (g/dL) Final RDW 11/11/2023 14:00:00 12.8 11.5-15.5 (%) Final Platelets 11/11/2023 14:00:00 272 140-400 (K/uL) Final MPV 11/11/2023 14:00:00 9.8 6.6-11.1 (fL) Final Nucleated erythrocytes/100 leukocytes [Ratio] in Blood by Automated count 11/11/2023 14:00:00 0 <=0 (/100 WBCs) Final Performing Location LABORATORY [address] David GLEASON [address]
--- OUTSIDE RECORDS SUMMARY | 2024-02-18 01:13 | External Medical Summary ---
Author Name Unknown Address Unknown Organization K2I:LABORATORY [facility] - [address] David GLEASON [address] Laboratory Report Ordering Provider Test Date Status MARLENESHABANA 10/09/2023 02:26:00 Final Observation Date Value Abnormality Reference (Units ) Status SYNC LEUKOCYTES IN BLOOD BY AUTOMATED COUNT 10/09/2023 02:26:00 11.25 Above high normal 4.00-10.80 (K/uL) Final Segs 10/09/2023 02:26:00 79.1 Above high normal 40.0-75.0 (%) Final Lymphs % 10/09/2023 02:26:00 12.8 Below low normal 18.0-42.0 (%) Final Monos 10/09/2023 02:26:00 6.8 1.0-11.0 (%) Final Eosinophils 10/09/2023 02:26:00 0.3 0.0-6.0 (%) Final Basos 10/09/2023 02:26:00 0.6 0.0-2.0 (%) Final Immature Granulocyte, Percent 10/09/2023 02:26:00 0.4 0.0-2.0 (%) Final Absolute Segs 10/09/2023 02:26:00 8.91 Above high normal 1.80-7.70 (K/uL) Final Lymphs, absolute 10/09/2023 02:26:00 1.44 1.00-4.80 (K/ul) Final Monos, Abs 10/09/2023 02:26:00 0.76 0.00-1.10 (K/uL) Final Eos, Abs 10/09/2023 02:26:00 0.03 0.00-0.70 (K/uL) Final Basos, Abs 10/09/2023 02:26:00 0.07 0.00-0.20 (K/uL) Final Immature Granulocytes, Number 10/09/2023 02:26:00 0.04 0.00-0.20 (K/uL) Final Performing Location LABORATORY [facility] - [address] [facility] [address] David GLEASON [address]
--- OUTSIDE RECORDS SUMMARY | 2024-02-18 01:13 | External Medical Summary ---
Author Name Unknown Address Unknown Organization K2I:LABORATORY [facility] - [address] David [place] [address] Laboratory Report Ordering Provider Test Date Status NESS VELIZ 10/10/2023 06:27:00 Final Observation Date Value Abnormality Reference (Units ) Status Phosphate 10/10/2023 06:27:00 2.8 2.5-4.8 (m g/dL) Final Performing Location LABORATORY [facility] - [address] [facility] [address] David GLEASON [address]
--- OUTSIDE RECORDS SUMMARY | 2024-02-18 01:13 | External Medical Summary ---
Author Name Unknown Address Unknown Organization K2I:LABORATORY [address] David GLEAS[place] [address] Laboratory Report Ordering Provider Test Date Status SHABANA ROSARIO 10/09/2023 02:26:00 Final Observation Date Value Abnormality Reference (Units ) Status Troponin T 10/09/2023 02:26:00 <6 <=14 (ng/ L) Final Performing Location LABORATORY [address] David GLEASON [address]
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
--- OUTSIDE RECORDS SUMMARY | 2024-02-18 01:13 | External Medical Summary ---
Author Name Unknown Address Unknown Organization K2I:LABORATORY [facility] - [address] [place] [address] Laboratory Report Ordering Provider Test Date Status KYAHUGOKASSANDRA 10/09/2023 02:26:00 Final Observation Date Value Abnormality Reference (Units ) Status CK 10/09/2023 02:26:00 121 26-192 (U/ L) Final Performing Location LABORATORY [facility] - [address] [facility] [address] [place] [address]
--- OUTSIDE RECORDS SUMMARY | 2024-02-18 01:13 | External Medical Summary ---
Author Name Unknown Address Unknown Organization K2I:LABORATORY [facility] - [address] [place] [address] Laboratory Report Ordering Provider Test Date Status MICHELA SERRANO 11/11/2023 14:00:00 Final Observation Date Value Abnormality Reference (Units ) Status BUN 11/11/2023 14:00:00 12 6-20 (mg/dL) Final Creatinine 11/11/2023 14:00:00 0.8 0.5-1.0 (mg/dL) Final Glomerular filtration rate/1.73 sq M.predicted [Volume Rate/Area] in Serum, Plasma or Blood by Creatinine-based formula (CKD-EPI) 11/11/2023 14:00:00 >90 >=60 (mL/min) Final eGFR is calculated based on the CKD-EPI 2020 equation Sodium 11/11/2023 14:00:00 140 135-146 (m mol/L) Final Potassium 11/11/2023 14:00:00 3.5 3.5-5.1 (m mol/L) Final Cl 11/11/2023 14:00:00 97 Below low normal 98- 107 (mmol/L) Final CO2 11/11/2023 14:00:00 24 22-32 (mmo l/L) Final Anion gap 11/11/2023 14:00:00 19 Above high normal 7- 15 (mmol/L) Final Glucose 11/11/2023 14:00:00 110 70-120 (mg /dL) Final Albumin 11/11/2023 14:00:00 4.8 3.8-5.0 (g /dL) Final AST (Aspartate aminotransferase) 11/11/2023 14:00:00 33 10-35 (U/L) Fin al Alk Phos 11/11/2023 14:00:00 92 35-130 (U/ L) Final Bilirubin, Total 11/11/2023 14:00:00 0.3 <=1 .2 (mg/dL) Final Calcium 11/11/2023 14:00:00 9.4 8.4-10.2 ( mg/dL) Final Protein 11/11/2023 14:00:00 7.8 6.0-8.3 (g /dL) Final ALT (Alanine aminotransferase) 11/11/2023 14:00:00 8 Below low normal 10-35 (U/L) Final Performing Location LABORATORY [address] [place] [address]
--- OUTSIDE RECORDS SUMMARY | 2024-02-18 01:13 | External Medical Summary ---
Author Name Unknown Address Unknown Organization [id number]:LABORATORY [facility] - [address] [place] [id number] Laboratory Report Ordering Provider Test Date Status ALONSOERIKA 11/12/2023 22:53:01 Final Observation Date Value Abnormality Reference (Units ) Status Ethanol 11/12/2023 22:53:01 384 Above high normal Ne gative (mg/dL) Final Performing Location LAB[facility]ATORY [facility] - [address] [facility] [address]
--- OUTSIDE RECORDS SUMMARY | 2024-02-18 01:13 | External Medical Summary ---
Author Name Unknown Address Unknown Organization [id number]:LABORATORY [facility] - [address] [place] [id number] Laboratory Report Ordering Provider Test Date Status NESS VELIZ 10/09/2023 07:56:36 Final Observation Date Value Abnormality Reference (Units) Status Bacteria identified in Specimen by Culture 10/09/2023 07:56:36 No significant growth Final Test: Culture, Urine, Quanti tative
Specimen Source: Urine, Clean Catch
Specimen Type: Urine
Specimen Date: 10/09/2023 [id number]
Result Date: 10/10/2023 0821
Result Status: Final result
Resulting Lab: LABORATORY [facility]
[address]
[place] [address]

CULTURE

No significant growth

null Performing Location LABORATORY [facility] - [address] [facility] [address]
--- OUTSIDE RECORDS SUMMARY | 2024-02-18 01:13 | External Medical Summary ---
Author Name Unknown Address Unknown Organization K2I:LABORATORY [facility] - [address] [place] [address] Laboratory Report Ordering Provider Test Date Status NESS VELIZ 10/10/2023 06:27:00 Final Observation Date Value Abnormality Reference (Units ) Status BUN 10/10/2023 06:27:00 10 6-20 (mg/dL) Final Creatinine 10/10/2023 06:27:00 0.8 0.5-1.0 (mg/dL) Final Glomerular filtration rate/1.73 sq M.predicted [Volume Rate/Area] in Serum, Plasma or Blood by Creatinine-based formula (CKD-EPI) 10/10/2023 06:27:00 >90 >=60 (mL/min) Final eGFR is calculated based on the CKD-EPI 2020 equation Sodium 10/10/2023 06:27:00 136 135-146 (m mol/L) Final Potassium 10/10/2023 06:27:00 3.8 3.5-5.1 (m mol/L) Final Cl 10/10/2023 06:27:00 99 98-107 (mm ol/L) Final CO2 10/10/2023 06:27:00 30 22-32 (mmo l/L) Final Anion gap 10/10/2023 06:27:00 7 7-15 (mmol /L) Final Glucose 10/10/2023 06:27:00 114 70-120 (mg /dL) Final Albumin 10/10/2023 06:27:00 4.3 3.8-5.0 (g /dL) Final AST (Aspartate aminotransferase) 10/10/2023 06:27:00 28 10-35 (U/L) Final Alk Phos 10/10/2023 06:27:00 98 35-130 (U/ L) Final Bilirubin, Total 10/10/2023 06:27:00 0.8 <=1 .2 (mg/dL) Final Calcium 10/10/2023 06:27:00 9.2 8.4-10.2 ( mg/dL) Final Protein 10/10/2023 06:27:00 6.9 6.0-8.3 (g /dL) Final ALT (Alanine aminotransferase) 10/10/2023 06:27:00 10 10-35 (U/L) Final Performing Location LABORATORY [address] [place] [address]
--- OUTSIDE RECORDS SUMMARY | 2024-02-18 01:13 | External Medical Summary ---
Author Name Unknown Address Unknown Organization K2I:LABORATORY [facility] - [address] [place] [address] Dr. [place] [address] Laboratory Report Ordering Provider Test Date Status MICHELA SERRANO 11/11/2023 14:00:00 Final Observation Date Value Abnormality Reference (Units ) Status Ethanol 11/11/2023 14:00:00 262 Above high normal Ne gative (mg/dL) Final Performing Location LABORATORY [address] [place] [address]
--- OUTSIDE RECORDS SUMMARY | 2024-02-18 01:13 | External Medical Summary ---
Author Name Unknown Address Unknown Organization [facility]:LAB[facility]ATORY [address] David [place] [address] Laboratory Report Ordering Provider Test Date Status NESS VELIZ 10/10/2023 06:28:00 Final Observation Date Value Abnormality Reference (Units ) Status WBC, Total 10/10/2023 06:28:00 4.53 4.00-10.80 (K/uL) Final RBC 10/10/2023 06:28:00 4.22 3.85-5.15 (M/uL) Final Hemoglobin 10/10/2023 06:28:00 12.4 12.0-15.3 (g/dL) Final HCT 10/10/2023 06:28:00 37.6 36.0-45.2 (%) Final MCV 10/10/2023 06:28:00 89.1 81.5-97.5 (fL) Final MCH 10/10/2023 06:28:00 29.4 27.0-34.0 (pg) Final MCHC 10/10/2023 06:28:00 33.0 32.0-36.0 (g/dL) Final RDW 10/10/2023 06:28:00 12.9 11.5-15.5 (%) Final Platelets 10/10/2023 06:28:00 231 140-400 (K/uL) Final MPV 10/10/2023 06:28:00 9.8 6.6-11.1 (fL) Final Nucleated erythrocytes/100 leukocytes [Ratio] in Blood by Automated count 10/10/2023 06:28:00 0 <=0 (/100 WBCs) Final Performing Location LABORATORY [address] David [place] [address]
--- OUTSIDE RECORDS SUMMARY | 2024-02-18 01:13 | External Medical Summary ---
Author Name Unknown Address Unknown Organization [facility] - [address] David [place] [address] Laboratory Report Ordering Provider Test Date Status AYANA BOLAND 10/09/2023 10:31:00 Final Observation Date Value Abnormality Reference (Units ) Status Lactic Acid 10/09/2023 10:31:00 1.7 0.4-2.0 (mmol/L) Final Performing Location LABORATORY [facility] - [address] [place] [address] Dr. David [place] [address]
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
--- OUTSIDE RECORDS SUMMARY | 2024-02-18 01:14 | External Medical Summary ---
Author Name Unknown Address Unknown Organization [facility]:LABORATORY [facility] - [address] [place] [address] Laboratory Report Ordering Provider Test Date Status SHABANA ROSARIO 09/13/2023 18:46:31 Final Observation Date Value Abnormality Reference (Units ) Status WBC, Total 09/13/2023 18:46:31 7.18 4.00-10.80 (K/uL) Final RBC 09/13/2023 18:46:31 3.96 3.85-5.15 (M/uL) Final Hemoglobin 09/13/2023 18:46:31 11.9 Below low normal 12.0-15.3 (g/dL) Final HCT 09/13/2023 18:46:31 35.1 Below low normal 36.0-45.2 (%) Final MCV 09/13/2023 18:46:31 88.6 81.5-97.5 (fL) Final MCH 09/13/2023 18:46:31 30.1 27.0-34.0 (pg) Final MCHC 09/13/2023 18:46:31 33.9 32.0-36.0 (g/dL) Final RDW 09/13/2023 18:46:31 13.2 11.5-15.5 (%) Final Platelets 09/13/2023 18:46:31 277 140-400 (K/uL) Final MPV 09/13/2023 18:46:31 9.9 6.6-11.1 (fL) Final Nucleated erythrocytes/100 leukocytes [Ratio] in Blood by Automated count 09/13/2023 18:46:31 0 <=0 (/100 WBCs) Final Performing Location LABORATORY [facility] - [address] [place] [id number]
--- OUTSIDE RECORDS SUMMARY | 2024-02-18 01:14 | External Medical Summary ---
Author Name Unknown Address Unknown Organization [facility]E:LABORATORY [facility] - [address] [facility] [address] Laboratory Report Ordering Provider Test Date Status MARLENE,SHABANA 09/13/2023 18:46:31 Final Observation Date Value Abnormality Reference (Units ) Status BUN 09/13/2023 18:46:31 18 6-20 (mg/dL) Final Creatinine 09/13/2023 18:46:31 0.8 0.5-1.0 (mg/dL) Final Glomerular filtration rate/1.73 sq M.predicted [Volume Rate/Area] in Serum, Plasma or Blood by Creatinine-based formula (CKD-EPI) 09/13/2023 18:46:31 88 >=60 (mL/min) Final eGFR is calculated based on the CKD-EPI 2020 equation Sodium 09/13/2023 18:46:31 140 135-146 (m mol/L) Final Potassium 09/13/2023 18:46:31 3.5 3.5-5.1 (m mol/L) Final Cl 09/13/2023 18:46:31 102 98-107 (mm ol/L) Final CO2 09/13/2023 18:46:31 24 22-32 (mmo l/L) Final Anion gap 09/13/2023 18:46:31 14 7-15 (mmol /L) Final Glucose 09/13/2023 18:46:31 111 70-120 (mg /dL) Final Albumin 09/13/2023 18:46:31 4.3 3.8-5.0 (g /dL) Final AST (Aspartate aminotransferase) 09/13/2023 18:46:31 28 10-35 (U/L) Fin al Alk Phos 09/13/2023 18:46:31 84 35-130 (U/ L) Final Bilirubin, Total 09/13/2023 18:46:31 0.2 <=1 .2 (mg/dL) Final Calcium 09/13/2023 18:46:31 9.0 8.4-10.2 ( mg/dL) Final Protein 09/13/2023 18:46:31 6.8 6.0-8.3 (g /dL) Final ALT (Alanine aminotransferase) 09/13/2023 18:46:31 8 Below low normal 10-35 (U/L) Final Performing Location LABORATORY [address] [address]
--- OUTSIDE RECORDS SUMMARY | 2024-02-18 01:14 | External Medical Summary ---
Author Name Unknown Address Unknown Organization [facility]E:LABORATORY [facility] - [address] [facility] [address] Laboratory Report Ordering Provider Test Date Status SHABANA ROSARIO 09/13/2023 18:46:31 Final Observation Date Value Abnormality Reference (Units ) Status SYNC LEUKOCYTES IN BLOOD BY AUTOMATED COUNT 09/13/2023 18:46:31 7.18 4.00-10.80 (K/uL) Final Segs 09/13/2023 18:46:31 46.8 40.0-75.0 (%) Final Lymphs % 09/13/2023 18:46:31 35.5 18.0-42.0 (%) Final Monos 09/13/2023 18:46:31 10.3 1.0-11.0 (%) Final Eosinophils 09/13/2023 18:46:31 6.0 0.0-6.0 (%) Final Basos 09/13/2023 18:46:31 1.3 0.0-2.0 (%) Final Immature Granulocyte, Percent 09/13/2023 18:46:31 0.1 0.0-2.0 (%) Final Absolute Segs 09/13/2023 18:46:31 3.36 1.80-7.70 (K/uL) Final Lymphs, absolute 09/13/2023 18:46:31 2.55 1.00-4.80 (K/ul) Final Monos, Abs 09/13/2023 18:46:31 0.74 0.00-1.10 (K/uL) Final Eos, Abs 09/13/2023 18:46:31 0.43 0.00-0.70 (K/uL) Final Basos, Abs 09/13/2023 18:46:31 0.09 0.00-0.20 (K/uL) Final Immature Granulocytes, Number 09/13/2023 18:46:31 0.01 0.00-0.20 (K/uL) Final Performing Location LABORATORY [facility] - [address] [place] [address]
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
--- OUTSIDE RECORDS SUMMARY | 2024-02-18 01:14 | External Medical Summary | Summary of Care ---
Author Name Unknown Organization [facility] Address [address] [place] [address] Phone [phone] Care Team Providers Care Quiller Runner Name Role Phone Joel Tahmina Adriana ALONSO Primary Care Provider Reason for Visit * Reason Comments Intoxication * Auth/Cert Specialty Diagnoses / Procedures Referred By Contac t Referred To Contact [facility] [address] [place] [address] Phone: [phone] Emergency Medicine [facility] [address] [place] [address] Referral ID Status Reason Start Date Expiration Date Visits Re quested Visits Authorized [id number] Encounter Details Date Type Department Care Team (Late st Contact Info) Description 09/13/2023 5:34 PM EDT - 09/13/2023 11:11 PM EDT Emergency [facility] Emergency Department ([facility]) [address] [place] [phone] Parviz Melgoza MD [address] [place] [address] Acute alcoholic intoxication without complication (HCC) (Primary [...] found Ventricular Rate: 83 Atrial Rate: 83 AK Interval: 176 QRS Duration: 76 QT/QTc: 398/467 ms P-R-T [place]: 46 : -22 : 25 degrees documented [...] in this encounter Miscellaneous Notes * ED Putty Remover Note - Eduardo Arshad RN - 09/13/2023 9:54 PM EDT TOÑITO yielded 0.30 upon discharge * ED Putty Remover Note - Eduardo Arshad RN - 09/13/2023 8:54 PM EDT EKG was not completed as of yet because patient was sleeping per day shift. documented in this encounter Plan of Treatment Upcoming Encounters Date Type Department Care Team (Late st Contact Info) Description 11/19/2023 10:00 AM EDT Office Visit [address] [address] Sirena Vick CRNP [address] [place] [id number] 11/19/2023 12:00 PM EDT Appointment Radiology [facility], [address] [address] 12/07/2023 8:00 AM EDT Office Visit [address] [address] Sirena Vick CRNP [address] [place] [address] Health Maintenance Due Date Last Done Comments [...] 09/13/2023 9:09 PM EDT Narrative Procedure Note Raghva Gonzalez DO - 09/13/2023 9:09 PM EDT REASON FOR STUDY: Electrolyte abnormality CONCLUSIONS: Normal sinus rhythm Low voltage QRS, consider pulmonary disease, pericardial effusion, ornormal variant Borderline ECG When compared with ECG of 07-Apr-2024 13:51, No significant change was found Ventricular Rate: 83 Atrial Rate: 83 AK Interval: 176 QRS Duration: 76 QT/QTc: 398/467 ms P-R-T [place]: 46 : -22 : 25 degrees Parviz Melgoza MD EKG [facility] * DIFFERENTIAL, AUTOMATED (09/13/2023 6:46 PM EDT) [...] MD LAB BLOOD ORDERA BLES LABORATORY [facility] [address] [place] [id number] * (ABNORMAL) CBC (09/13/2023 6:46 PM EDT) [facility] WBC 7.18 4.00 - 10.80 K/uL 09/13/2023 [...] LAB BLOOD ORDERA BLES Performing Organization Address City/[facility]/ZIP Co de Phone Number LABORATORY [facility] [address] [place] [phone] * (ABNORMAL) ETHANOL, MEDICAL (09/13/2023 6:46 PM EDT) Ethanol, Medical 321.0(H) Negative mg/dL 09/13/2023 7:09 PM EDT LABORATORY [facility] Blood Venous blood specimen / Unknown Venipuncture / Unknown 09/13/2023 6:46 PM EDT 09/13/2023 6:50 PM EDT Parviz Melgoza MD LAB BLOOD ORDERA BLES Performing Organization Address [facility] Co de Phone Number LABORATORY [facility] [address] [place] [phone] * (ABNORMAL) COMPREHENSIVE METABOLIC PANEL (09/13/2023 6:46 [...] LAB BLOOD ORDERA BLES Performing Organization Address City/[facility]/ZIP Co de Phone Number LABORATORY [facility] [address] [place] [phone] * LIPASE (09/13/2023 6:46 PM EDT) Lipase 51 13 - 60 U/L 09/13/2023 7:09 PM EDT LABORATORY [facility] Blood Venous blood specimen / Unknown Venipuncture / Unknown 09/13/2023 6:46 PM EDT 09/13/2023 6:50 PM EDT Parviz Melgoza MD LAB BLOOD ORDERA BLES Performing Organization Address City/[facility]/ZIP Co de Phone Number LABORATORY [facility] [address] [place] [phone] documented in this encounter Visit Diagnoses Diagnosis [...] Advance Directives occurred with: Patient Care Teams Quiller Runner Relationship Specialty Start Date End Date Tahmina Maldonado DO [address] [place] [id number] PCP - General Internal Medicine 01/28/19 documented as of this encounter
--- OUTSIDE RECORDS SUMMARY | 2024-02-18 01:14 | External Medical Summary ---
Author Name Unknown Address Unknown Organization K0E:LABORATORY [facility] - [address] [place] [address] Laboratory Report Ordering Provider Test Date Status SHABANA ROSARIO 09/13/2023 18:46:31 Final Observation Date Value Abnormality Reference (Units ) Status Ethanol 09/13/2023 18:46:31 321.0 Above high normal Ne gative (mg/dL) Final Performing Location LABORATORY [facility] - [facility] [id number]
--- OUTSIDE RECORDS SUMMARY | 2024-02-18 01:14 | External Medical Summary ---
Author Name Unknown Address Unknown Organization K0E:LABORATORY [facility] - [address] [place] [address] Laboratory Report Ordering Provider Test Date Status SHABANA ROSARIO 09/13/2023 18:46:31 Final Observation Date Value Abnormality Reference (Units ) Status Lipase 09/13/2023 18:46:31 51 13-60 (U/L ) Final Performing Location LABORATORY [facility] - [address] [place] [address]
[2024-02-18] MEDS: GABAPENTIN 600 MG TAB PO SCH (06:36)
[2024-02-18 06:40] LABS: Basophils # (auto) 0.08 K/uL (0.00-0.20); Basophils % (auto) 1.1 %; Eosinophils # (auto) 0.33 K/uL (0.00-0.50); Eosinophils % (auto) 4.4 %; Hematocrit (blood only) 31.3 % (37.0-47.0); Hemoglobin 10.9 g/dl (12.0-16.0); Immature Granulocytes # (auto) 0.02 K/uL (0.01-0.20); Immature Granulocytes % (auto) 0.3 %; Lymphocytes # (auto) 2.01 K/uL (1.20-3.40); Lymphocytes % (auto) 26.6 %; Mean Corpuscular Hemoglobin 29.7 pg (25.0-34.0); Mean Corpuscular Hgb Conc 34.8 g/dL (32.0-36.0); Mean Corpuscular Volume 85.3 fL (80.0-100.0); Mean Platelet Volume 9.8 fL (9.4-12.4); Monocytes # (auto) 0.68 K/uL (0.11-0.59); Neutrophils # (auto) 4.45 K/uL (1.40-6.50); Neutrophils % (auto) 58.6 %; Platelet Count 197 K/uL (130-400); RDW Coefficient of Variation 12.8 % (11.5-14.5); RDW Standard Deviation 39.9 fL (36.4-46.3); Red Blood Count 3.67 M/uL (4.20-5.40); White Blood Count 7.57 K/ul (4.8-10.8)
[2024-02-18] MEDS: LORazepam 2 MG/1 ML VIAL IV PRN ×3 (06:44→17:27)
[2024-02-18 07:04] LABS: BUN Creatinine Ratio 24.2 (10-20); Calcium 8.6 mg/dl (8.6-10.3); Creatinine Clr Calc Pharmacy 90.5 ml/min; Potassium 3.6 mmol/L (3.5-5.1)
[2024-02-18] MEDS ORDERED: chlordiazePOXIDE ALCOHOL WITHDRAWL 50MG PO STA (07:46)
[2024-02-18 07:53] LABS: Estimated Average Glucose 105 mg/dl; Hemoglobin A1C 5.3 % (4.5-5.6)
[2024-02-18] MEDS ORDERED: SODIUM CHLORIDE 0.9% 1,000 ML IV SCH (08:00)
[2024-02-18] MEDS: chlordiazePOXIDE HCl 25 MG CAP PO SCH (08:39)
[2024-02-18] MEDS: THIAMINE HCL 100 MG in SYRINGE 9 ML IV SCH (09:46)
[2024-02-18] MEDS: FOLIC ACID 1 MG in SYRINGE 9.8 ML IV SCH (09:46)
[2024-02-18] MEDS: modafiniL 100 MG TAB PO SCH (09:46)
[2024-02-18] MEDS: NSS + 20MEQ KCL 20 MEQ/1,000 ML BAG IV SCH (14:13)
--- NOTE | 2024-02-18 14:38 | Hospitalist Progress Note ---
Date of Service February 18, 2024 Assessment & Plan (1) Alcohol withdrawal: Plan: History of alcohol withdrawal seizures 02/17 Alcohol withdrawal scale score 7 earlier this morning Gabapentin protocol changed to Librium protocol Monitor and replace electrolytes Continue to monitor closely multiple sclerosis, in remission, patient follows with ROSIBEL Velasco neurologist Stable anxiety disorder, at baseline DVT prophylaxis. SCDs Full code [facility], and completed Librium taper protocol Admission and Anticipated Discharge Date Admission Date: February 17, 2024 Subjective Follow-up with alcohol withdrawal, etc. Seen is resting in bed, sleeping but easily awakened Awake and alert, oriented x 3 States she feels okay overall, improved compared to admission Less tremors, denies anxiety, has some sweating, but no hallucinations or confusion No fevers or chills No headache, dizziness, nausea vomiting, abdominal pain Denies depression, suicidal ideations Ultimate goal is to return to [facility] for inpatient care No other new symptoms Review of Systems Review of Systems: all noted and negative except for above Physical Exam Physical Exam: General- oriented x 3, not in distress, speaks in sentences with no effort or accessory muscle use Eyes- anicteric Neck- no JVD Lungs- clear breath sounds bilaterally, No crackles or wheezing Heart- normal rate, regular rhythm; no murmurs Abdomen- normal bowel sounds, nondistended, soft, nontender Extremities- no pretibial edema, no calf tenderness No bilateral hand tremors Neuro- alert, oriented x 3; no gross focal neurologic deficits Skin- warm & dry Results & Data Results & Data Vital Signs (Past 12 Hours) Vital Signs Temp Pulse Pulse Resp BP Pulse Ox O2 Del Method 02/18/24 11:47 37.3 C 79 21 118/76 100 Room Air 02/18/24 07:06 76 02/18/24 07:00 76 12 103/68 96 Room Air 02/18/24 05:00 73 12 111/63 94 Nasal Cannula 02/18/24 04:04 80 14 102/59 L 94 Nasal Cannula 02/18/24 03:01 78 14 95/59 L 98 Nasal Cannula O2 Flow Rate 02/18/24 11:47 02/18/24 07:06 02/18/24 07:00 02/18/24 05:00 2 02/18/24 04:04 2 02/18/24 03:01 2 all noted and reviewed including below
[2024-02-18] MEDS: ESCITALOPRAM OXALATE 10 MG TAB PO SCH (20:12)
[2024-02-18] MEDS ORDERED: GABAPENTIN 600 MG TAB PO SCH (20:15)
[2024-02-18] MEDS: traZODone HCL 50 MG TAB PO SCH (22:24)
[2024-02-18] MEDS: MELATONIN 3 MG TAB PO PRN (22:24)
--- NOTE | 2024-02-19 06:06 | Electrocardiogram Report ---
Test Reason : Blood Pressure : */* mmHG Vent. Rate : 87 BPM Atrial Rate : 87 BPM P-R Int : 158 ms QRS Dur : 76 ms QT Int : 366 ms P-R-T Axes : 105 218 148 degrees QTcB Int : 440 ms Normal sinus rhythm Limb lead reversal suspected Nonspecific T wave abnormality Abnormal ECG No previous ECGs available Confirmed by Roger Arriaga ([id number]) on 02/19/2024 6:06:17 AM Referred By: Confirmed By: Roger Arriaga
[2024-02-19 06:20] LABS: Appearance Urine Clear (Clear); Bacteria Urine Automated None Seen (None Seen); Bilirubin Urine Negative (Negative); Blood Urine Trace (Negative); Cast Urine Automated 0-2 /lpf (0-2); Color Urine Yellow; Epithelial Cell Urine Auto 0-2 /hpf (0-2); Glucose Urine UA Negative (Negative); Ketones Urine Negative (Negative); Leukocyte Esterase Urine Trace (Negative); Nitrite Urine Negative (Negative); Protein Urine Negative (Negative); RBC Urine Automated 0-2 /hpf (0-2); Specific Gravity Urine 1.018 (1.000-1.030); Urobilinogen Urine Negative (Negative); WBC Urine Automated 0-5 /hpf (0-5)
[2024-02-19 06:32] LABS: Basophils # (auto) 0.05 K/uL (0.00-0.20); Basophils % (auto) 0.8 %; Eosinophils # (auto) 0.59 K/uL (0.00-0.50); Eosinophils % (auto) 9.9 %; Hematocrit (blood only) 35.4 % (37.0-47.0); Hemoglobin 11.8 g/dl (12.0-16.0); Immature Granulocytes # (auto) 0.01 K/uL (0.01-0.20); Immature Granulocytes % (auto) 0.2 %; Lymphocytes # (auto) 2.52 K/uL (1.20-3.40); Lymphocytes % (auto) 42.4 %; Mean Corpuscular Hemoglobin 28.9 pg (25.0-34.0); Mean Corpuscular Hgb Conc 33.3 g/dL (32.0-36.0); Mean Corpuscular Volume 86.8 fL (80.0-100.0); Mean Platelet Volume 10.6 fL (9.4-12.4); Monocytes # (auto) 0.65 K/uL (0.11-0.59); Monocytes % (auto) 10.9 %; Neutrophils # (auto) 2.13 K/uL (1.40-6.50); Neutrophils % (auto) 35.8 %; Platelet Count 225 K/uL (130-400); RDW Coefficient of Variation 12.6 % (11.5-14.5); Red Blood Count 4.08 M/uL (4.20-5.40); White Blood Count 5.95 K/ul (4.8-10.8)
[2024-02-19 06:36] LABS: Amphetamines+Metham, Urine Neg (Neg); Barbiturates, Urine Neg (Neg); Benzodiazepine, Urine Pos (Neg); Cocaine, Urine Neg (Neg); Fentanyl, Urine Neg (Neg); MDMA (Ecstacy), Urine Neg (Neg); Marijuana, Urine Neg (Neg); Methadone, Urine Neg (Neg); Opiate, Urine Neg (Neg); Phencyclidine, Urine Neg (Neg)
[2024-02-19 06:56] LABS: BUN Creatinine Ratio 19.4 (10-20); Calcium 9.5 mg/dl (8.6-10.3); Creatinine Clr Calc Pharmacy 82.4 ml/min; Potassium 3.4 mmol/L (3.5-5.1)
[2024-02-19] MEDS: POTASSIUM CHLORIDE CRTAB 20 MEQ TABCR PO STA (08:08)
[2024-02-19 08:35] LABS: Magnesium 1.9 mg/dl (1.7-2.4)
[2024-02-19] MEDS: chlordiazePOXIDE HCl 25 MG CAP PO SCH (13:18)
--- NOTE | 2024-02-19 17:26 | Hospitalist Progress Note ---
Date of Service February 19, 2024 Assessment & Plan (1) Alcohol withdrawal: Plan: History of alcohol withdrawal seizures 02/17 Alcohol withdrawal scale score 7 earlier this morning Gabapentin protocol changed to Librium protocol Monitor and replace electrolytes Continue to monitor closely 02/18 AW score 8-9 today Continue Librium protocol, with as needed IV Ativan Continue to monitor closely multiple sclerosis, in remission, patient follows with ROSIBEL Velasco neurologist Stable anxiety disorder, at baseline DVT prophylaxis. SCDs Full code [facility] Patient requesting to be transitioned to [facility] as soon as possible, she is concerned she might loose her bed over there Admission and Anticipated Discharge Date Admission Date: February 17, 2024 Subjective Follow-up for alcohol withdrawal, etc. Seen with 1 is to 1 sitter at the bedside States that she feels okay today Reports anxiety, very [facility] Denies tremors, hallucinations, confusion No other new symptoms Patient reassured Review of Systems Review of Systems: all noted and negative except for above Physical Exam Physical Exam: General- oriented x 3, not in distress, speaks in sentences with no effort or accessory muscle use Eyes- anicteric Neck- no JVD Lungs- clear breath sounds bilaterally, no rales/wheezes Heart- normal rate, regular rhythm; no murmurs Abdomen- normal bowel sounds, nondistended, soft, nontender Extremities- no pretibial edema, no calf tenderness No hand tremors Neuro- alert, oriented x 3; no gross focal neurologic deficits Skin- warm & dry Results & Data Results & Data Vital Signs (Past 12 Hours) Vital Signs Temp Pulse Resp BP Pulse Ox O2 Del Method 02/19/24 15:07 36.8 C 89 16 113/66 97 Room Air 02/19/24 11:21 37.2 C 72 18 127/58 L 98 Room Air 02/19/24 08:18 36.7 C 71 18 115/70 99 Room Air all noted and reviewed including below
[2024-02-20] MEDS ORDERED: GABAPENTIN 600 MG TAB PO SCH (00:15)
[2024-02-20 07:00] LABS: BUN Creatinine Ratio 16.7 (10-20); Calcium 9.3 mg/dl (8.6-10.3); Creatinine Clr Calc Pharmacy 83.4 ml/min; Potassium 3.9 mmol/L (3.5-5.1)
[2024-02-20 07:02] LABS: Folate (Folic Acid),Ser orPlas > 22.30 ng/ml (>5.38)
[2024-02-20 07:03] LABS: Vitamin B12 879 pg/ml (180-914)
[2024-02-20] MEDS: THIAMINE HCL 100 MG TAB PO SCH (08:32)
[2024-02-20] MEDS: FOLIC ACID 1 MG TAB PO SCH (10:33)
[2024-02-20] MEDS: chlordiazePOXIDE HCl 25 MG CAP PO SCH (13:27)
--- NOTE | 2024-02-20 15:34 | Hospitalist Progress Note ---
Date of Service February 20, 2024 Assessment & Plan (1) Alcohol withdrawal: Plan: History of alcohol withdrawal seizures 02/17 Alcohol withdrawal scale score 7 earlier this morning Gabapentin protocol changed to Librium protocol Monitor and replace electrolytes Continue to monitor closely 02/18 AW score 8-9 today Continue Librium protocol, with as needed IV Ativan Continue to monitor closely 02/19 Pt is feeling well, declined librium earlier as it made her feel groggy. Discussed the taper and poss. DC to rehab or sunday. Pt would like to go there as soon as possible. multiple sclerosis, in remission, patient follows with ROSIBEL Velasco neurologist Stable anxiety disorder, at baseline DVT prophylaxis. SCDs Full code Disposition Return to [facility] alcohol rehab center once medically stable Patient requesting to be transitioned to [facility] as soon as possible, she is concerned she might loose her bed over there Admission and Anticipated Discharge Date Admission Date: February 17, 2024 Subjective Follow-up for alcohol withdrawal, etc. Sitting up in bed in [facility] Anxious to go to rehab, [facility] Denies any withdrawal symptoms Denies tremors, hallucinations, confusion No other new symptoms Review of Systems Review of Systems: All systems reviewed & are unremarkable except as noted in Subjective Physical Exam Physical Exam: General- oriented x 3, not in distress, speaks in sentences with no effort or accessory muscle use Eyes- anicteric Neck- no JVD Lungs- clear breath sounds bilaterally, no rales/wheezes Heart- normal rate, regular rhythm; no murmurs Abdomen- normal bowel sounds, nondistended, soft, nontender Extremities- no pretibial edema, no calf tenderness No hand tremors Neuro- alert, oriented x 3; no gross focal neurologic deficits Skin- warm & dry Results & Data Results & Data Vital Signs (Past 12 Hours) Vital Signs Temp Pulse Pulse Pulse Resp BP Pulse Ox 02/20/24 15:00 36.7 C 84 18 108/75 98 02/20/24 11:40 36.9 C 16 103/66 97 02/20/24 11:35 89 02/20/24 07:03 36.2 C L 65 17 96/59 L 97 O2 Del Method 02/20/24 15:00 Room Air 02/20/24 11:40 Room Air 02/20/24 11:35 02/20/24 07:03 Room Air Laboratory Results 02/20/24 Range/Units 05:19 Sodium 138 (136-145) mmol/L Potassium 3.9 (3.5-5.1) mmol/L Chloride 102 (98-107) mmol/L Carbon Dioxide 30 (21-32) mmol/L Anion Gap 6 (3-11) BUN 12 (6-23) mg/dl Creatinine 0.72 (0.6-1.2) mg/dl Est Cr Clr Drug Dosing 83.4 ml/min eGFR 102.43 BUN/Creatinine Ratio 16.7 (10-20) Glucose 86 (70-99(Fasting)) mg/dl Calcium 9.3 (8.6-10.3) mg/dl Magnesium 2.0 (1.7-2.4) mg/dl Iron 94 (35-150) mcg/dl Vitamin B12 879 (180-914) pg/ml Folate > 22.30 (>5.38) ng/ml Medications Administered Current Inpatient Medications Acetaminophen (Acetaminophen 325 Mg Tab) 650 mg PO QID PRN PRN Reason: pain/fever Stop: 03/19/24 00:09 Chlordiazepoxide HCl (Chlordiazepoxide Hcl 10 Mg Cap) 10 mg PO Q12H MARCELLE Stop: 02/22/24 06:01 Chlordiazepoxide HCl (Chlordiazepoxide Hcl 10 Mg Cap) 10 mg PO Q8H MARCELLE Stop: 02/21/24 06:01 Escitalopram Oxalate (Escitalopram Oxalate 10 Mg Tab) 10 mg PO HS MARCELLE Stop: 03/19/24 20:59 Last Admin: 02/19/24 21:07 Dose: 10 mg Folic Acid (Folic Acid 1 Mg Tab) 1 mg PO DAILY MARCELLE Stop: 03/21/24 08:59 Last Admin: 02/20/24 10:33 Dose: 1 mg Promethazine HCl (Phenergan) 6.25 mg in 50.25 mls @ 201 mls/hr IV Q6H PRN PRN Reason: Nausea And Vomiting Stop: 03/19/24 00:09 Lorazepam (Lorazepam 2 Mg/1 Ml Vial) 1 mg IV UD PRN; Protocol PRN Reason: EtOH Withdrawal AWSS Score 6,7 Stop: 03/19/24 00:08 Last Admin: 02/19/24 21:25 Dose: 1 mg Lorazepam (Lorazepam 2 Mg/1 Ml Vial) 2 mg IV UD PRN; Protocol PRN Reason: EtOH Withdrawal AWSS Score 8,9 Stop: 03/19/24 00:08 Last Admin: 02/19/24 18:47 Dose: 2 mg Lorazepam (Lorazepam 2 Mg/1 Ml Vial) 3 mg IV ONCE PRN; Protocol PRN Reason: EtOH Withdrawal AWSS Score 10+ Lorazepam (Lorazepam 2 Mg/1 Ml Vial) 1 mg IV Q10M PRN PRN Reason: seizures Stop: 03/19/24 03:41 Lorazepam (Lorazepam 2 Mg/1 Ml Vial) 0.5 mg IV Q4H PRN PRN Reason: Anxiety/Agitation Stop: 03/19/24 07:50 Last Admin: 02/19/24 17:17 Dose: 0.5 mg Melatonin (Melatonin 3 Mg Tab) 9 mg PO HS PRN PRN Reason: Sleep Stop: 03/19/24 21:54 Last Admin: 02/18/24 22:24 Dose: 9 mg Modafinil (Modafinil 100 Mg Tab) 100 mg PO QAM MARCELLE Stop: 03/19/24 08:59 Last Admin: 02/20/24 08:34 Dose: 100 mg Oxycodone HCl (Oxycodone Hcl Ir 5 Mg Tab (Immediate Release)) 5 mg PO Q4H PRN PRN Reason: Pain Stop: 03/03/24 00:09 Thiamine HCl (Thiamine Hcl 100 Mg Tab) 100 mg PO DAILY [facility] Stop: 03/21/24 08:59 Last Admin: 02/20/24 08:32 Dose: 100 mg Trazodone HCl (Trazodone Hcl 50 Mg Tab) 25 mg PO HS MARCELLE Stop: 03/19/24 20:59 Last Admin: 02/19/24 21:23 Dose: 25 mg (1) Alcohol withdrawal Complication of substance-induced condition: with unspecified complication Qualified Code(s): F10.939 - Alcohol use, unspecified with withdrawal, unspecified
[2024-02-21 06:28] LABS: 7-Aminoclonaz, Confirm NEGATIVE ng/mL (<25); Hydro-Alp Ur, GC/MS NEGATIVE ng/mL (<25); Hydroxyethylflurazepam, Conf NEGATIVE ng/mL (<50); Hydroxymidazolam Ur, GC/MS NEGATIVE ng/mL (<50); Hydroxytriazolam NEGATIVE ng/mL (<50); Lorazepam, Ur GC/MS >2000 ng/mL (<50); Nordiazepam, Confirm NEGATIVE ng/mL (<50); Oxazepam Ur, GC/MS NEGATIVE ng/mL (<50); Temazepam, Confirm NEGATIVE ng/mL (<50)
[2024-02-21 07:12] LABS: BUN Creatinine Ratio 23.1 (10-20); Calcium 9.3 mg/dl (8.6-10.3); Creatinine Clr Calc Pharmacy 75.2 ml/min; Magnesium 2.1 mg/dl (1.7-2.4); Phosphorus 4.5 mg/dl (2.5-4.9); Potassium 3.7 mmol/L (3.5-5.1)
[2024-02-21] MEDS: POTASSIUM CHLORIDE CRTAB 20 MEQ TABCR PO STA (08:05)
--- NOTE | 2024-02-21 10:26 | Hospitalist Progress Note ---
Date of Service February 21, 2024 Assessment & Plan (1) Alcohol withdrawal: Plan: History of alcohol withdrawal seizures 02/17 Alcohol withdrawal scale score 7 earlier this morning Gabapentin protocol changed to Librium protocol Monitor and replace electrolytes Continue to monitor closely 02/18 AW score 8-9 today Continue Librium protocol, with as needed IV Ativan Continue to monitor closely 02/19 Pt is feeling well, declined librium earlier as it made her feel groggy. Discussed the taper and poss. DC to rehab tm or sunday. 02/20 Feeling well, tolerating lower dose of librium better, says she had a good night sleep. Plan to DC to [facility] tomorrow. multiple sclerosis, in remission, patient follows with ROSIBEL Velasco neurologist Stable anxiety disorder, at baseline DVT prophylaxis. SCDs Full code [facility]position [facility], likely tmrw Admission and Anticipated Discharge Date Admission Date: February 17, 2024 Subjective Follow-up for alcohol withdrawal, etc. Sitting up in bed in [facility] Planning to go to rehab, [facility]. She is no longer anxious, she is very r easonable. Denies any withdrawal symptoms Denies tremors, hallucinations, confusion No other new symptoms Discussed w/ RN as well, pt has been doing well Review of Systems Review of Systems: All systems reviewed & are unremarkable except as noted in Subjective Physical Exam Physical Exam: General- oriented x 3, not in distress, speaks in sentences with no effort or accessory muscle use Eyes- anicteric Neck- no JVD Lungs- clear breath sounds bilaterally, no rales/wheezes Heart- normal rate, regular rhythm; no murmurs Abdomen- normal bowel sounds, nondistended, soft, nontender Extremities- no pretibial edema, no calf tenderness No hand tremors Neuro- alert, oriented x 3; no gross focal neurologic deficits Skin- warm & dry Results & Data Results & Data Vital Signs (Past 12 Hours) Vital Signs Temp Pulse Resp BP Pulse Ox O2 Del Method 02/21/24 07:16 36.7 C 68 18 117/66 95 Room Air 02/21/24 03:15 36.5 C 63 16 96/61 L 96 Room Air 02/20/24 23:05 36.6 C 70 16 91/58 L 96 Room Air Laboratory Results 02/21/24 02/19/24 Range/Units 05:22 05:52 Sodium 138 (136-145) mmol/L Potassium 3.7 (3.5-5.1) mmol/L Chloride 100 (98-107) mmol/L Carbon Dioxide 31 (21-32) mmol/L Anion Gap 7 (3-11) BUN 18 (6-23) mg/dl Creatinine 0.78 (0.6-1.2) mg/dl Est Cr Clr Drug Dosing 75.2 ml/min eGFR 93.05 BUN/Creatinine Ratio 23.1 H (10-20) Glucose 91 (70-99(Fasting)) mg/dl Calcium 9.3 (8.6-10.3) mg/dl Phosphorus 4.5 (2.5-4.9) mg/dl Magnesium 2.1 (1.7-2.4) mg/dl U OH-Alprazolam Confrm NEGATIVE (<25) ng/mL 7-Amino Clonazepam NEGATIVE (<25) ng/mL Ur Nordiazepam Confirm NEGATIVE (<50) ng/mL U OH-ethylflurazepam NEGATIVE (<50) ng/mL U Lorazepam Cnf GC/MS >2000 H (<50) ng/mL U Oxazepam Confm GC/MS NEGATIVE (<50) ng/mL Ur Temazepam Confirm NEGATIVE (<50) ng/mL U OH-Triazolam Confirm NEGATIVE (<50) ng/mL U OH-Midazolam Confirm NEGATIVE (<50) ng/mL Drug Screen Comment SEE NOTE Medications Administered Current Inpatient Medications Acetaminophen (Acetaminophen 325 Mg Tab) 650 mg PO QID PRN PRN Reason: pain/fever Stop: 03/19/24 00:09 Chlordiazepoxide HCl (Chlordiazepoxide Hcl 10 Mg Cap) 10 mg PO Q12H MARCELLE Stop: 02/22/24 06:01 Last Admin: 02/20/24 20:28 Dose: 10 mg Chlordiazepoxide HCl (Chlordiazepoxide Hcl 10 Mg Cap) 10 mg PO ONE ONE Stop: 02/21/24 10:22 Escitalopram Oxalate (Escitalopram Oxalate 10 Mg Tab) 10 mg PO HS MARCELLE Stop: 03/19/24 20:59 Last Admin: 02/20/24 20:27 Dose: 10 mg Folic Acid (Folic Acid 1 Mg Tab) 1 mg PO DAILY MARCELLE Stop: 03/21/24 08:59 Last Admin: 02/21/24 08:06 Dose: 1 mg Promethazine HCl (Phenergan) 6.25 mg in 50.25 mls @ 201 mls/hr IV Q6H PRN PRN Reason: Nausea And Vomiting Stop: 03/19/24 00:09 Lorazepam (Lorazepam 2 Mg/1 Ml Vial) 1 mg IV UD PRN; Protocol PRN Reason: EtOH Withdrawal AWSS Score 6,7 Stop: 03/19/24 00:08 Last Admin: 02/19/24 21:25 Dose: 1 mg Lorazepam (Lorazepam 2 Mg/1 Ml Vial) 2 mg IV UD PRN; Protocol PRN Reason: EtOH Withdrawal AWSS Score 8,9 Stop: 03/19/24 00:08 Last Admin: 02/19/24 18:47 Dose: 2 mg Lorazepam (Lorazepam 2 Mg/1 Ml Vial) 3 mg IV ONCE PRN; Protocol PRN Reason: EtOH Withdrawal AWSS Score 10+ Lorazepam (Lorazepam 2 Mg/1 Ml Vial) 1 mg IV Q10M PRN PRN Reason: seizures Stop: 03/19/24 03:41 Lorazepam (Lorazepam 2 Mg/1 Ml Vial) 0.5 mg IV Q4H PRN PRN Reason: Anxiety/Agitation Stop: 03/19/24 07:50 Last Admin: 02/19/24 17:17 Dose: 0.5 mg Melatonin (Melatonin 3 Mg Tab) 9 mg PO HS PRN PRN Reason: Sleep Stop: 03/19/24 21:54 Last Admin: 02/20/24 20:28 Dose: 9 mg Modafinil (Modafinil 100 Mg Tab) 100 mg PO QAM MARCELLE Stop: 03/19/24 08:59 Last Admin: 02/21/24 08:05 Dose: 100 mg Oxycodone HCl (Oxycodone Hcl Ir 5 Mg Tab (Immediate Release)) 5 mg PO Q4H PRN PRN Reason: Pain Stop: 03/03/24 00:09 Thiamine HCl (Thiamine Hcl 100 Mg Tab) 100 mg PO DAILY [facility] Stop: 03/21/24 08:59 Last Admin: 02/21/24 08:06 Dose: 100 mg Trazodone HCl (Trazodone Hcl 50 Mg Tab) 25 mg PO HS MARCELLE Stop: 03/19/24 20:59 Last Admin: 02/20/24 20:27 Dose: 25 mg (1) Alcohol withdrawal Complication of substance-induced condition: with unspecified complication Qualified Code(s): F10.939 - Alcohol use, unspecified with withdrawal, unspecified
[2024-02-21] MEDS ORDERED: GABAPENTIN 600 MG TAB PO SCH (12:15)
[2024-02-21] MEDS: ACETAMINOPHEN 325 MG TAB PO PRN (20:13)
[2024-02-21 23:10] VITALS: TEMP 97.9
[2024-02-22 07:47] VITALS: O2SAT 99
[2024-02-22 10:52] VITALS: RESP 18
--- NOTE | 2024-02-22 11:16 | Discharge Summary ---
Date of Service February 22, 2024 Admission HPI Per Admitting Provider History obtained from patient and records. Medical history significant for multiple sclerosis, anxiety disorder, alcohol abuse, history alcohol withdrawal seizures. Patient is a resident of [facility] who traveled to [facility] seeking voluntary admission at [facility] for detox. Last confinement [facility] September 2023 for alcohol withdrawal seizures. Recent [facility] ER visit 4 days ago for ground-level fall/head trauma at [place] detox facility. Patient discharged back to detox facility. Patient had [employer] company driver take her to [facility] today seeking confinement for voluntary detox. Patient noted tremors en route to facility. Elevated alcohol level at facility. Patient directed to ER for admission given history of alcohol withdrawal seizures. Patient denies headache, chest pain, SOB, abdominal pain. Patient denies suicidality. 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 Follow up with your primary care provider within 1 week after your rehab. Recommend to take thiamine and folic acid daily. It is crucial that you abstain from drinking alcohol. Discharge Exam General- oriented x 3, not in distress, speaks in sentences with no effort or accessory muscle use Eyes- anicteric Neck- no JVD Lungs- clear breath sounds bilaterally, no rales/wheezes Heart- normal rate, regular rhythm; no murmurs Abdomen- normal bowel sounds, nondistended, soft, nontender Extremities- no pretibial edema, no calf tenderness No hand tremors Neuro- alert, oriented x 3; no gross focal neurologic deficits Skin- warm & dry Discharge Data Allergies Allergy/AdvReac Type Severity Reaction Status Date / Time Penicillins Allergy Hives Verified 02/17/24 22:06 Consultations 02/17/24 22:23 ED Decision to Admit Stat Hospital Course (1) Alcohol withdrawal: History of alcohol withdrawal seizures 02/17 Alcohol withdrawal scale score 7 earlier this morning Gabapentin protocol changed to Librium protocol Monitor and replace electrolytes Continue to monitor closely 02/18 AW score 8-9 today Continue Librium protocol, with as needed IV Ativan Continue to monitor closely 02/19 Pt is feeling well, declined librium earlier as it made her feel groggy. Discussed the taper and poss. DC to rehab or sunday. 02/20 Feeling well, tolerating lower dose of librium better, says she had a good night sleep. Plan to DC to [facility] tomorrow. 02/21 Pt is feeling well. No signs of withdrawal. Finished the librium taper. multiple sclerosis, in remission, patient follows with [facility] neurologist Stable anxiety disorder, at baseline [facility]position [facility] Total Time Total Time Spent Total Time Spent (In Minutes): 40 Discharge Plan Discharge Items Patient Disposition: Drug & Alcohol Rehab Reason For Visit: ETOH WITHDRAWAL Discharge Diagnosis: Alcohol withdrawal Alcohol use disorder Condition on Discharge: Good Activity: Per Instructions section Non-emergency contact: Primary Care Provider and Specialist Call non-emergency contact if: you have any medication questions and your symptoms worsen Follow-up/Referrals: [facility] [Primary Care Provider] - Diet: Regular Addtl Attending Provider Instructions: You are being discharged to an alcohol rehab facility. Follow up with your primary care provider within 1 week after your rehab. Recommend to take thiamine and folic acid daily. It is crucial that you abstain from drinking alcohol. Pending Studies at Discharge: No Stand-Alone Forms: My [facility] Skilled Items Patient informed of condition?: Yes DNR: No Discharge Level of Care: Other Communicable Disease: No Discharge Prognosis: Stable Lines: None Urinary Catheter: No Medications and DC Order Prescriptions: New folic acid 1 mg Tablet 1 mg PO DAILY Qty: 30 0RF thiamine HCl (vitamin B1) 100 mg Tablet 100 mg PO DAILY Qty: 30 0RF Continued trazodone 50 mg tablet 25 mg PO HS modafinil 100 mg tablet 100 mg PO QAM escitalopram oxalate 10 mg tablet 10 mg PO HS Discharge Orders: Discharge Order (Routine); Ordered 02/22/24 Ordered By: Amador Brito Admission Data Admit Date/Time: 02/17/24 23:52 Attending Provider: Amador Brito Admit Provider: Mando Grayson Primary Care Provider: Manuel Butler Other Providers: Mando Grayson; Sachin Gloria
[2024-02-22 11:22] VITALS: BP 117/66
[2024-02-22 11:33] VITALS: PULSE 56
== END 2024-02-22 12:00 | disposition alcohol treatment (31) | DRG 897 ==
LOC: ED 20:01 → EDINP 23:52 → SUATTDRO 23:52 → 2E 02-18 01:10